=== PATIENT | male | born 1945 | race Caucasian/White ===

== ENCOUNTER → 2016-10-02 | Outpatient (CLI) | payer OTHER ==
[~2016-10-02] MED LIST: /LAMO20TA; /PROM25SU PO; ACET65TA; AMLODIPIN PO; AMLODIPINE/BENAZEPRI; ARIC10TA OR; ASPI81TA3; ASPI81TA3 OR; BENAZEPRIL PO; CARBAMIDE PEROXIDE AD; CLAR5CHW OR; DEPA500T2 OR; EFFE37.527; FLEXERIL; FLUO10TA2; GABA300T; GABA600T3 OR; IBUP600T; LOPI600T; LORATADINE; LOTREL; MECL25TA2 OR; NEUR600T; OMEP20TA7 OR; PHEN 25 PO; PRIL20CA; PROV90AE; PROZ10CA; PROZ20CA OR; RISP4TAB; SM I100T; VENL37.5 OR; VITA20002 OR
[2016-10-04 14:13] LABS: PSA TOTAL 1.4 ng/mL (0.0-4.0)
== END ==
LOC: M SMT 11:52
PROVIDERS: ATTEND Urology
DX: Z87.898 Personal history of other specified conditions (principal); N40.1 Benign prostatic hyperplasia with lower urinary tract symptoms; R39.12 Poor urinary stream
CPT/HCPCS: 36415; 84154; G0463

== ENCOUNTER → 2016-10-25 | Outpatient (CLI) | payer MEDICAID, OTHER ==
--- NOTE | 2016-10-25 12:01 | REP ---
LEFT ELBOW SERIES: Four views. HISTORY: Lateral epicondylitis. FINDINGS: There is mild olecranon and coronoid process spurring of the proximal ulna. No epicondylar spurring is seen. No periarticular soft-tissue calcification is seen. No evidence of joint effusion noted. IMPRESSION: Mild proximal ulnar spurring. No acute bony abnormality. Signed by Luis Miguel Houston MD 10/25/2016 02:27 P
== END ==
LOC: M RAD 11:33
PROVIDERS: ATTEND Physician Assistant
DX: M25.70 Osteophyte, unspecified joint (principal)

== ENCOUNTER → 2016-11-17 | Outpatient (CLI) | payer OTHER, MEDICAID | LOC: M PT 09:56 | PROVIDERS: ATTEND Physician Assistant | DX: M54.5 Low back pain (principal) | CPT/HCPCS: 97162; G8978; G8979; G8980 ==

== ENCOUNTER 2016-11-20 13:24 | Emergency (ER) | payer MEDICAID, OTHER ==
[~2016-11-20] VITALS: Ht 182.9 cm; Wt 93.4 kg
[2016-11-20] MEDS ORDERED: [UNRECOGNIZED DRUG - REMARK] (14:08)
[2016-11-20 15:59] VITALS: BP 115/71
== END 2016-11-20 16:10 | disposition home or self-care (01) ==
LOC: M ED 15:38
DX: J02.9 Acute pharyngitis, unspecified (principal); I10 Essential (primary) hypertension; R56.9 Unspecified convulsions; E78.00 Pure hypercholesterolemia, unspecified; R01.1 Cardiac murmur, unspecified; M54.9 Dorsalgia, unspecified; M19.90 Unspecified osteoarthritis, unspecified site; F41.9 Anxiety disorder, unspecified; F32.9 Major depressive disorder, single episode, unspecified; Z79.899 Other long term (current) drug therapy; Z79.82 Long term (current) use of aspirin; Z88.5 Allergy status to narcotic agent; F17.210 Nicotine dependence, cigarettes, uncomplicated

== ENCOUNTER → 2016-12-25 | Outpatient (CLI) | payer OTHER, MEDICAID ==
[~2016-12-25] MED LIST changes: +[UNRECOGNIZED DRUG - REMARK]
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
== END ==
LOC: M PAIN 11:20
PROVIDERS: ATTEND Nurse Practitioner Family
DX: Z09 Encounter for follow-up examination after completed treatment for conditions other than malignant neoplasm (principal); G89.29 Other chronic pain; M53.3 Sacrococcygeal disorders, not elsewhere classified; M25.552 Pain in left hip; M25.551 Pain in right hip; G40.909 Epilepsy, unspecified, not intractable, without status epilepticus; F03.90 Unspecified dementia, unspecified severity, without behavioral disturbance, psychotic disturbance, mood disturbance, and anxiety; I10 Essential (primary) hypertension; M51.36 Other intervertebral disc degeneration, lumbar region; M16.11 Unilateral primary osteoarthritis, right hip; K21.9 Gastro-esophageal reflux disease without esophagitis; F32.9 Major depressive disorder, single episode, unspecified; H91.90 Unspecified hearing loss, unspecified ear; H81.49 Vertigo of central origin, unspecified ear; R19.7 Diarrhea, unspecified; J43.9 Emphysema, unspecified; Z88.8 Allergy status to other drugs, medicaments and biological substances; F17.290 Nicotine dependence, other tobacco product, uncomplicated; Z79.82 Long term (current) use of aspirin; Z79.899 Other long term (current) drug therapy

== ENCOUNTER 2016-12-31 13:31 | Emergency (ER) | payer MEDICAID, OTHER ==
[~2016-12-31] VITALS: Ht 182.9 cm; Wt 93.0 kg
[2016-12-31] MEDS ORDERED: DOXYCYCLINE HYCLATE 100 MG TAB PO ONE (14:45)
[2016-12-31 15:09] VITALS: BP 126/78
[2017-01-03 00:07] LABS: Lyme Disease IgG/IgM Antibodie <0.91 ISR (0.00-0.90); Lyme Disease IgM Ab Quantitati <0.80 index (0.00-0.79)
== END 2016-12-31 15:14 | disposition home or self-care (01) ==
LOC: M ED 15:04
DX: S31.159A Open bite of abdominal wall, unspecified quadrant without penetration into peritoneal cavity, initial encounter (principal); W57.XXXA Bitten or stung by nonvenomous insect and other nonvenomous arthropods, initial encounter; Y92.9 Unspecified place or not applicable; Y93.9 Activity, unspecified; Y99.9 Unspecified external cause status; I10 Essential (primary) hypertension; F17.200 Nicotine dependence, unspecified, uncomplicated; Z79.82 Long term (current) use of aspirin; Z79.899 Other long term (current) drug therapy; Z88.5 Allergy status to narcotic agent

== ENCOUNTER → 2017-03-09 | Outpatient (CLI) | payer MEDICAID, MEDICARE, OTHER ==
[2017-03-09 16:20] LABS: ALBUMIN 3.7 GM/DL (3.2-5.2); ALBUMIN/GLOBULIN RATIO 1.16 (1.00-1.93); BILIRUBIN,TOTAL 0.4 MG/DL (0.2-1.0); CALCIUM LEVEL 9.1 MG/DL (8.8-10.2); CREATININE FOR GFR 1.42 MG/DL (0.70-1.30); GLOMERULAR FILTRATION RATE 51.9 (>42); POTASSIUM SERUM 4.4 MEQ/L (3.5-5.1); TOTAL PROTEIN 6.9 GM/DL (6.4-8.2)
--- NOTE | 2017-03-10 02:38 | REP ---
Clinical: Pain . Technique: Internal rotation, external rotation, and Y view. Findings: No acute fracture or dislocation. The acromioclavicular and glenohumeral joints are intact. No periarticular calcifications or degenerative changes are appreciated. Sub acromial space is normal. Surrounding soft tissues are unremarkable. Impression: Normal right shoulder radiographs. Signed by Gallo Rachel MD 03/10/2017 02:29 A
== END ==
LOC: M LAB 15:31
PROVIDERS: ATTEND Physician Assistant
DX: E78.4 Other hyperlipidemia (principal); M25.511 Pain in right shoulder; E03.9 Hypothyroidism, unspecified

== ENCOUNTER → 2017-03-20 | Outpatient (RCR) | payer OTHER | END | disposition home or self-care (01) | LOC: M PT 03-17 13:00 | PROVIDERS: ATTEND Physician Assistant | DX: Z51.89 Encounter for other specified aftercare (principal); M25.511 Pain in right shoulder | CPT/HCPCS: 97161; G8984; G8985 ==

== ENCOUNTER 2017-04-01 14:30 | Outpatient (RCR) | payer OTHER | END 2017-04-20 | disposition home or self-care (01) | LOC: M PT 14:30 | PROVIDERS: ATTEND Physician Assistant | DX: Z51.89 Encounter for other specified aftercare (principal); M25.511 Pain in right shoulder ==

== ENCOUNTER → 2017-08-21 | Outpatient (REF) | payer OTHER, MEDICAID ==
[2017-08-21 13:46] LABS: BASO # 0.1 10^3/uL (0.0-0.2); BASO % 1.1 % (0.0-1.0); EOS # 0.7 10^3/uL (0.0-0.50); EOS % 7.1 % (0.0-3.0); IMMATURE GRANULOCYTE % 0.4 % (0-0); LYMPH # 3.5 10^3/uL (1.5-4.5); LYMPH % 35.4 % (24.0-44.0); MEAN CORPUSCULAR VOLUME 94.1 fl (80.0-96.0); MONO # 1.3 10^3/uL (0.0-0.8); MONO % 13.3 % (0.0-5.0); NEUTROPHILS # 4.2 10^3/uL (1.8-7.7); NEUTROPHILS % 42.7 % (36.0-66.0); PLATELET COUNT, AUTOMATED 171 10^3/uL (150-450); RED CELL DISTRIBUTION WIDTH 12.3 % (11.5-14.5); WHITE BLOOD COUNT 9.9 10^3/uL (4.0-10.0)
[2017-08-21 14:54] LABS: ALBUMIN 3.7 GM/DL (3.2-5.2); ALBUMIN/GLOBULIN RATIO 1.06 (1.00-1.93); BILIRUBIN,TOTAL 0.5 MG/DL (0.2-1.0); CALCIUM LEVEL 9.1 MG/DL (8.8-10.2); CREATININE FOR GFR 1.61 MG/DL (0.70-1.30); FREE T4 0.6 NG/DL (0.76-1.46); GLOMERULAR FILTRATION RATE 44.9 (>42); POTASSIUM SERUM 4.2 MEQ/L (3.5-5.1); TOTAL PROTEIN 7.2 GM/DL (6.4-8.2)
== END ==
LOC: M SFHCPLAZ 11:25
PROVIDERS: ATTEND Physician Assistant Medical
DX: E03.9 Hypothyroidism, unspecified (principal); Z12.5 Encounter for screening for malignant neoplasm of prostate; E55.9 Vitamin D deficiency, unspecified; I10 Essential (primary) hypertension; R56.9 Unspecified convulsions
CPT/HCPCS: 80053; 80164; 82306; 84439; 84443; 85025; G0103; G0463

== ENCOUNTER → 2017-09-18 | Outpatient (REF) | payer OTHER | LOC: M SFHCPLAZ 15:19 | DX: R56.9 Unspecified convulsions (principal); E55.9 Vitamin D deficiency, unspecified | CPT/HCPCS: 80164 ==

== ENCOUNTER → 2017-09-22 | Outpatient (CLI) | payer MEDICARE | LOC: M SMT 11:43 | DX: J06.9 Acute upper respiratory infection, unspecified (principal) | CPT/HCPCS: 85025 ==

== ENCOUNTER → 2017-09-22 | Outpatient (REF) | payer MEDICARE ==
[2017-09-22 15:11] LABS: BASO # 0.2 10^3/uL (0.0-0.2); BASO % 1.2 % (0.0-1.0); EOS # 0.8 10^3/uL (0.0-0.50); EOS % 6.7 % (0.0-3.0); HEMATOCRIT 38.2 % (42.0-52.0); HEMOGLOBIN 12.6 g/dl (14.0-18.0); IMMATURE GRANULOCYTE # 0.2 10^3/uL (0-0); IMMATURE GRANULOCYTE % 1.5 % (0-0); LYMPH # 3.2 10^3/uL (1.5-4.5); LYMPH % 26.2 % (24.0-44.0); MEAN CORPUSCULAR HEMOGLOBIN 31.9 pg (27.0-33.0); MEAN CORPUSCULAR VOLUME 96.7 fl (80.0-96.0); MONO # 1.7 10^3/uL (0.0-0.8); MONO % 14.2 % (0.0-5.0); NEUTROPHILS # 6.1 10^3/uL (1.8-7.7); NEUTROPHILS % 50.2 % (36.0-66.0); PLATELET COUNT, AUTOMATED 194 10^3/uL (150-450); RED BLOOD COUNT 3.95 10^6/uL (4.30-6.10); RED CELL DISTRIBUTION WIDTH 12.8 % (11.5-14.5); WHITE BLOOD COUNT 12.2 10^3/uL (4.0-10.0)
== END ==
LOC: M SFHCPLAZ 11:23
DX: J06.9 Acute upper respiratory infection, unspecified (principal)
CPT/HCPCS: 85025

== ENCOUNTER → 2017-10-09 | Outpatient (CLI) | payer MEDICARE | LOC: M RAD 12:37 | DX: R51 Headache (principal); I73.9 Peripheral vascular disease, unspecified | CPT/HCPCS: 70450 ==

== ENCOUNTER → 2017-11-18 | Outpatient (REF) | payer MEDICARE, MEDICAID ==
[2017-11-18 20:54] LABS: VALPROIC ACID (DEPAKOTE) 48.2 UG/ML (50.0-100.0)
== END ==
LOC: M LABNEURO 14:39
DX: R56.9 Unspecified convulsions (principal)
CPT/HCPCS: 80164

== ENCOUNTER → 2017-11-20 | Outpatient (REF) | payer MEDICARE, MEDICAID ==
[2017-11-20 12:50] LABS: CHOLESTEROL LEVEL 102 MG/DL (<200); CHOLESTEROL RISK RATIO 2.318 (<5); CPK CREATINE PHOSPHOKINASE 152 U/L (39-308); FREE T4 0.65 NG/DL (0.76-1.46); HDL CHOLESTEROL 44 MG/DL (>40); LDL CHOLESTEROL 37.2 MG/DL (<100); NON-HDL-C 58 MG/DL; TRIGLYCERIDES LEVEL 104 MG/DL (<150)
== END ==
LOC: M SFHCPLAZ 09:54
DX: E78.4 Other hyperlipidemia (principal); E03.9 Hypothyroidism, unspecified
CPT/HCPCS: 82550

== ENCOUNTER 2017-12-02 19:22 | Emergency (ER) | payer MEDICARE, MEDICAID | END 2017-12-02 22:25 | disposition left against medical advice (07) | LOC: M ED 19:22 | DX: Z53.29 Procedure and treatment not carried out because of patient's decision for other reasons (principal) ==

== ENCOUNTER → 2017-12-18 | Outpatient (CLI) | payer MEDICARE, MEDICAID | LOC: M RAD 11:18 | DX: T15.00XA Foreign body in cornea, unspecified eye, initial encounter (principal); X58.XXXA Exposure to other specified factors, initial encounter; Y92.89 Other specified places as the place of occurrence of the external cause | CPT/HCPCS: 70250 ==

== ENCOUNTER → 2018-03-18 | Outpatient (CLI) | payer MEDICARE, MEDICAID ==
[2018-03-18 15:49] LABS: VALPROIC ACID (DEPAKOTE) 89.2 UG/ML (50.0-100.0)
== END ==
LOC: M LAB 14:34
DX: R56.9 Unspecified convulsions (principal)
CPT/HCPCS: 80164

== ENCOUNTER → 2018-04-01 | Outpatient (CLI) | payer MEDICARE, MEDICAID | LOC: M RAD 12:29 | DX: M51.36 Other intervertebral disc degeneration, lumbar region (principal); M25.78 Osteophyte, vertebrae; S30.0XXA Contusion of lower back and pelvis, initial encounter; S20.211A Contusion of right front wall of thorax, initial encounter; M25.522 Pain in left elbow; W19.XXXA Unspecified fall, initial encounter; W22.09XA Striking against other stationary object, initial encounter; Y92.9 Unspecified place or not applicable; Z23 Encounter for immunization | CPT/HCPCS: 72110 ==

== ENCOUNTER → 2018-04-19 | Outpatient (REF) | payer OTHER ==
[2018-04-19 18:45] LABS: ALBUMIN 3.7 GM/DL (3.2-5.2); ALBUMIN/GLOBULIN RATIO 1.03 (1.00-1.93); ALKALINE PHOSPHATASE 58 U/L (45-117); ALT/SGPT 36 U/L (12-78); ANION GAP 7 MEQ/L (8-16); AST/SGOT 32 U/L (7-37); BILIRUBIN,TOTAL 0.3 MG/DL (0.2-1.0); BLOOD UREA NITROGEN 21 MG/DL (7-18); CALCIUM LEVEL 8.7 MG/DL (8.8-10.2); CARBON DIOXIDE LEVEL 29 MEQ/L (21-32); CHLORIDE LEVEL 105 MEQ/L (98-107); CREATININE FOR GFR 1.56 MG/DL (0.70-1.30); GLOMERULAR FILTRATION RATE 46.4 (>42); GLUCOSE, FASTING 85 MG/DL (70-100); MAGNESIUM LEVEL 1.9 MG/DL (1.8-2.4); POTASSIUM SERUM 4.1 MEQ/L (3.5-5.1); SODIUM LEVEL 141 MEQ/L (136-145); TOTAL PROTEIN 7.3 GM/DL (6.4-8.2)
== END ==
LOC: M SFHCPLAZ 15:30
DX: K52.9 Noninfective gastroenteritis and colitis, unspecified (principal)

== ENCOUNTER → 2018-05-10 | Outpatient (REF) | payer OTHER, MEDICARE | LOC: M LAB REF 12:19 | DX: R19.7 Diarrhea, unspecified (principal) ==

== ENCOUNTER 2018-05-25 08:10 | Day surgery (SDC) | payer MEDICARE, MEDICAID ==
[2018-05-25] MEDS: NS 1,000 ML IV ×2 (08:23)
== END 2018-05-25 10:50 | disposition home or self-care (01) ==
LOC: M OPP 10:50
DX: D12.3 Benign neoplasm of transverse colon (principal); R19.7 Diarrhea, unspecified; R56.9 Unspecified convulsions; F03.90 Unspecified dementia, unspecified severity, without behavioral disturbance, psychotic disturbance, mood disturbance, and anxiety; K21.9 Gastro-esophageal reflux disease without esophagitis; I10 Essential (primary) hypertension; E78.00 Pure hypercholesterolemia, unspecified; E03.9 Hypothyroidism, unspecified; R06.02 Shortness of breath; F17.210 Nicotine dependence, cigarettes, uncomplicated; Z79.82 Long term (current) use of aspirin; Z79.84 Long term (current) use of oral hypoglycemic drugs; Z79.899 Other long term (current) drug therapy; Z88.8 Allergy status to other drugs, medicaments and biological substances; Z87.442 Personal history of urinary calculi
CPT/HCPCS: 45385

== ENCOUNTER → 2018-06-03 | Outpatient (REF) | payer OTHER, MEDICAID ==
[2018-06-03 18:49] LABS: BASO # 0.1 10^3/uL (0.0-0.2); BASO % 1.1 % (0.0-1.0); EOS # 0.6 10^3/uL (0.0-0.50); EOS % 7.5 % (0.0-3.0); HEMATOCRIT 37.7 % (42.0-52.0); HEMOGLOBIN 13.1 g/dl (13.5-17.5); IMMATURE GRANULOCYTE % 0.6 % (0-3.0); LYMPH # 2.8 10^3/uL (1.5-4.5); LYMPH % 34.2 % (24.0-44.0); MEAN CORPUSCULAR HEMOGLOBIN 32.3 pg (27.0-33.0); MEAN CORPUSCULAR HGB CONC 34.7 g/dl (32.0-36.5); MEAN CORPUSCULAR VOLUME 93.1 fl (80.0-96.0); NEUTROPHILS # 3.6 10^3/uL (1.8-7.7); NEUTROPHILS % 44.6 % (36.0-66.0); PLATELET COUNT, AUTOMATED 169 10^3/uL (150-450); RED BLOOD COUNT 4.05 10^6/uL (4.30-6.10); RED CELL DISTRIBUTION WIDTH 12.8 % (11.5-14.5); RETIC HEMOGLOBIN EQUIVALENT 35.7 pg (24-36); RETICULOCYTE # 79.8 10^9/L (17-77); WHITE BLOOD COUNT 8.2 10^3/uL (4.0-10.0)
[2018-06-03 19:00] LABS: INR 0.92; PARTIAL THROMBOPLASTIN TIME 25.4 SECONDS (25.4-37.6); PROTHROMBIN TIME 12.4 SECONDS (12.1-14.4)
[2018-06-03 19:31] LABS: ALBUMIN 3.4 GM/DL (3.2-5.2); ALBUMIN/GLOBULIN RATIO 0.92 (1.00-1.93); ALKALINE PHOSPHATASE 56 U/L (45-117); ALT/SGPT 27 U/L (12-78); ANION GAP 7 MEQ/L (8-16); AST/SGOT 19 U/L (7-37); BILIRUBIN,TOTAL 0.3 MG/DL (0.2-1.0); BLOOD UREA NITROGEN 13 MG/DL (7-18); CALCIUM LEVEL 8.7 MG/DL (8.8-10.2); CARBON DIOXIDE LEVEL 29 MEQ/L (21-32); CHLORIDE LEVEL 107 MEQ/L (98-107); CREATININE FOR GFR 1.22 MG/DL (0.70-1.30); GLOMERULAR FILTRATION RATE > 60.0 (>42); GLUCOSE, FASTING 84 MG/DL (70-100); SODIUM LEVEL 143 MEQ/L (136-145); TOTAL PROTEIN 7.1 GM/DL (6.4-8.2)
[2018-06-03 19:51] LABS: PTH INTACT 37.4 PG/ML (18.5-88.0); TOTAL 25(OH) VITAMIN D 43.3 NG/ML (30.0-100.0)
== END ==
LOC: M SFHCPLAZ 16:10
DX: I10 Essential (primary) hypertension (principal)

== ENCOUNTER 2018-06-14 05:45 | Day surgery (SDC) | payer MEDICARE, MEDICAID ==
[2018-06-14] MEDS ORDERED: LR 1,000 ML IV ×3 (07:15→09:00)
[2018-06-14] MEDS ORDERED: METOCLOPRAMIDE INJ 10MG/2ML VIAL (J2765) As Ordered (07:20)
[2018-06-14] MEDS ORDERED: PROPOFOL 200 MG/20 ML VIAL As Ordered (07:20)
[2018-06-14] MEDS ORDERED: ONDANSETRON 4MG/2ML VIAL (J2405) As Ordered (07:20)
[2018-06-14] MEDS ORDERED: LIDOCAINE 2% INJ 100 MG/5 ML SDV (FOR ANES.) As Ordered (07:20)
[2018-06-14] MEDS ORDERED: fentaNYL 100 MCG/2 ML INJECTION (J3010) As Ordered (07:21)
[2018-06-14] MEDS: BUPIVACAINE HCL 0.5% 30 ML VIAL As Ordered (08:24)
[2018-06-14] MEDS ORDERED: ONDANSETRON 4MG/2ML VIAL (J2405) IV (09:00)
[2018-06-14] MEDS ORDERED: fentaNYL 100 MCG/2 ML INJECTION (J3010) IV (09:00)
[2018-06-14] MEDS ORDERED: PERCOCET 5MG/325MG TAB PO (09:15)
== END 2018-06-14 10:40 | disposition home or self-care (01) ==
LOC: M SDC 05:45
DX: M23.221 Derangement of posterior horn of medial meniscus due to old tear or injury, right knee (principal); M23.261 Derangement of other lateral meniscus due to old tear or injury, right knee; M17.11 Unilateral primary osteoarthritis, right knee; M94.261 Chondromalacia, right knee; M23.41 Loose body in knee, right knee; E03.9 Hypothyroidism, unspecified; I12.9 Hypertensive chronic kidney disease with stage 1 through stage 4 chronic kidney disease, or unspecified chronic kidney disease; N20.0 Calculus of kidney; G40.909 Epilepsy, unspecified, not intractable, without status epilepticus; G30.0 Alzheimer's disease with early onset; E78.2 Mixed hyperlipidemia; R19.7 Diarrhea, unspecified; K21.9 Gastro-esophageal reflux disease without esophagitis; R06.02 Shortness of breath; F41.9 Anxiety disorder, unspecified; G62.9 Polyneuropathy, unspecified; R06.83 Snoring; N18.3 Chronic kidney disease, stage 3 (moderate); N40.0 Benign prostatic hyperplasia without lower urinary tract symptoms; J44.9 Chronic obstructive pulmonary disease, unspecified; Z88.5 Allergy status to narcotic agent; Z79.899 Other long term (current) drug therapy; Z79.82 Long term (current) use of aspirin; Z87.891 Personal history of nicotine dependence; Z87.442 Personal history of urinary calculi; Z86.010 Personal history of colon polyps
CPT/HCPCS: 29880

== ENCOUNTER 2018-06-27 14:58 | Emergency (ER) | payer MEDICARE, MEDICAID ==
[2018-06-27 16:26] LABS: BASO # 0.1 10^3/uL (0.0-0.2); BASO % 1.1 % (0.0-1.0); EOS # 0.5 10^3/uL (0.0-0.50); EOS % 4.1 % (0.0-3.0); IMMATURE GRANULOCYTE % 0.7 % (0-3.0); LYMPH # 3.4 10^3/uL (1.5-4.5); LYMPH % 30.9 % (24.0-44.0); MEAN CORPUSCULAR HEMOGLOBIN 31.5 pg (27.0-33.0); MEAN CORPUSCULAR HGB CONC 33.3 g/dl (32.0-36.5); MEAN CORPUSCULAR VOLUME 94.6 fl (80.0-96.0); MONO # 1.7 10^3/uL (0.0-0.8); MONO % 15.2 % (0.0-5.0); NEUTROPHILS # 5.2 10^3/uL (1.8-7.7); PLATELET COUNT, AUTOMATED 246 10^3/uL (150-450); RED BLOOD COUNT 4.44 10^6/uL (4.30-6.10); RED CELL DISTRIBUTION WIDTH 12.2 % (11.5-14.5); WHITE BLOOD COUNT 10.9 10^3/uL (4.0-10.0)
[2018-06-27 16:37] LABS: INR 1.03; PROTHROMBIN TIME 13.6 SECONDS (12.1-14.4)
[2018-06-27 16:46] LABS: ERYTHROCYTE SEDIMENTATION RATE 11 mm/hr (0-20)
[2018-06-27 16:49] LABS: ALBUMIN 3.7 GM/DL (3.2-5.2); ALKALINE PHOSPHATASE 70 U/L (45-117); ALT/SGPT 29 U/L (12-78); ANION GAP 8 MEQ/L (8-16); AST/SGOT 25 U/L (7-37); BILIRUBIN,DIRECT 0.1 MG/DL (0.0-0.2); BILIRUBIN,TOTAL 0.3 MG/DL (0.2-1.0); BLOOD UREA NITROGEN 19 MG/DL (7-18); C REACTIVE PROTEIN QUANTITATIV 0.39 MG/DL (0.00-0.30); CALCIUM LEVEL 8.5 MG/DL (8.8-10.2); CARBON DIOXIDE LEVEL 26 MEQ/L (21-32); CHLORIDE LEVEL 106 MEQ/L (98-107); CREATININE FOR GFR 1.53 MG/DL (0.70-1.30); GLOMERULAR FILTRATION RATE 47.5 (>42); GLUCOSE, FASTING 91 MG/DL (70-100); SODIUM LEVEL 140 MEQ/L (136-145); TOTAL PROTEIN 7.8 GM/DL (6.4-8.2)
[2018-06-27 16:49] LABS: LACTIC ACID SEPSIS PROTOCOL 1.6 MMOL/L (0.4-2.0)
[2018-06-27] MEDS: NS 1,000 ML IV (17:14)
[2018-06-27 18:36] LABS: APPEARANCE, BODY FLUID TURBID (CLEAR); SOURCE, BODY FLUID RT KNEE; SYNOVIAL FLUID COLOR RED (YELLOW)
[2018-06-27 18:37] LABS: BF DIFF IF INDICATED? YES (NO); BF MONONUCLEAR CELL % 88.9 % (0-0); BF POLYMORPHONUCLEAR CELL % 11.1 % (0-0); CRYSTALS, BODY FLUID NONE SEEN (NONE SEEN); RBC BODY FLUID 500 10^3/uL (<2); SOURCE, BODY FLUID CRYSTALS RT KNEE; WBC BODY FLUID 3030 /uL (0-10)
== END 2018-06-27 19:03 | disposition home or self-care (01) ==
LOC: M ED 14:58
DX: M25.061 Hemarthrosis, right knee (principal); M25.461 Effusion, right knee; Z98.890 Other specified postprocedural states; M79.89 Other specified soft tissue disorders; I10 Essential (primary) hypertension; E78.5 Hyperlipidemia, unspecified; M54.9 Dorsalgia, unspecified; F03.90 Unspecified dementia, unspecified severity, without behavioral disturbance, psychotic disturbance, mood disturbance, and anxiety; F41.9 Anxiety disorder, unspecified; F32.9 Major depressive disorder, single episode, unspecified; K21.9 Gastro-esophageal reflux disease without esophagitis; R56.9 Unspecified convulsions; Z87.442 Personal history of urinary calculi; E03.9 Hypothyroidism, unspecified; Z87.891 Personal history of nicotine dependence; Z88.5 Allergy status to narcotic agent; Z79.899 Other long term (current) drug therapy; Z79.82 Long term (current) use of aspirin
CPT/HCPCS: 73552

== ENCOUNTER → 2018-08-24 | Outpatient (REF) | payer MEDICARE, MEDICAID ==
[2018-08-24 16:16] LABS: BASO # 0.1 10^3/uL (0.0-0.2); BASO % 1.1 % (0.0-1.0); EOS # 0.5 10^3/uL (0.0-0.50); EOS % 5.7 % (0.0-3.0); HEMATOCRIT 38.2 % (42.0-52.0); HEMOGLOBIN 12.9 g/dl (13.5-17.5); IMMATURE GRANULOCYTE % 0.5 % (0-3.0); LYMPH # 3.3 10^3/uL (1.5-4.5); LYMPH % 38.9 % (24.0-44.0); MEAN CORPUSCULAR HEMOGLOBIN 31.5 pg (27.0-33.0); MEAN CORPUSCULAR HGB CONC 33.8 g/dl (32.0-36.5); MEAN CORPUSCULAR VOLUME 93.4 fl (80.0-96.0); MONO # 1.1 10^3/uL (0.0-0.8); MONO % 12.5 % (0.0-5.0); NEUTROPHILS # 3.5 10^3/uL (1.8-7.7); NEUTROPHILS % 41.3 % (36.0-66.0); PLATELET COUNT, AUTOMATED 202 10^3/uL (150-450); RED BLOOD COUNT 4.09 10^6/uL (4.30-6.10); RED CELL DISTRIBUTION WIDTH 12.3 % (11.5-14.5); WHITE BLOOD COUNT 8.5 10^3/uL (4.0-10.0)
[2018-08-24 16:30] LABS: ALBUMIN 3.4 GM/DL (3.2-5.2); ALKALINE PHOSPHATASE 53 U/L (45-117); ALT/SGPT 25 U/L (12-78); ANION GAP 6 MEQ/L (8-16); AST/SGOT 18 U/L (7-37); BILIRUBIN,TOTAL 0.3 MG/DL (0.2-1.0); BLOOD UREA NITROGEN 15 MG/DL (7-18); CALCIUM LEVEL 8.8 MG/DL (8.8-10.2); CARBON DIOXIDE LEVEL 29 MEQ/L (21-32); CHLORIDE LEVEL 104 MEQ/L (98-107); CREATININE FOR GFR 1.52 MG/DL (0.70-1.30); FREE T4 0.77 NG/DL (0.76-1.46); GLOMERULAR FILTRATION RATE 47.8 (>42); GLUCOSE, FASTING 94 MG/DL (70-100); POTASSIUM SERUM 4.3 MEQ/L (3.5-5.1); SODIUM LEVEL 139 MEQ/L (136-145); TOTAL PROTEIN 6.5 GM/DL (6.4-8.2)
== END ==
LOC: M SFHCPLAZ 14:08
DX: I10 Essential (primary) hypertension (principal); E03.9 Hypothyroidism, unspecified
CPT/HCPCS: 84443

== ENCOUNTER → 2018-09-07 | Outpatient (REF) | payer MEDICARE, MEDICAID ==
[~2018-09-07] MED LIST changes: +AMLO5TAB4 PO; +ASPI1TAB PO; +ATOR40TA75 PO; +BENA20TA8; +CITA20TA4 PO; +DIVA1TAB48 PO; +DIVA500T94 PO; +DONETAB6 PO; +FAMO40TA3 PO; +FISH7.5C PO; +GABA600T PO; +LEVO25TA5 PO; +NAME28CA PO; +PREV1CAP PO; +PRIM50TA6 PO; +TYLE500T78 PO; +VENL37TA PO; +VITA100067 PO; +VITA500T3 PO
[2018-09-07 17:56] LABS: BASO # 0.1 10^3/uL (0.0-0.2); BASO % 1.2 % (0.0-1.0); EOS # 0.4 10^3/uL (0.0-0.50); EOS % 4.1 % (0.0-3.0); HEMATOCRIT 38.5 % (42.0-52.0); HEMOGLOBIN 12.5 g/dl (13.5-17.5); LYMPH # 2.6 10^3/uL (1.5-4.5); LYMPH % 25.9 % (24.0-44.0); MEAN CORPUSCULAR HEMOGLOBIN 30.9 pg (27.0-33.0); MEAN CORPUSCULAR HGB CONC 32.5 g/dl (32.0-36.5); MEAN CORPUSCULAR VOLUME 95.3 fl (80.0-96.0); MONO # 1.3 10^3/uL (0.0-0.8); MONO % 12.8 % (0.0-5.0); NEUTROPHILS # 5.4 10^3/uL (1.8-7.7); NEUTROPHILS % 54.1 % (36.0-66.0); PLATELET COUNT, AUTOMATED 261 10^3/uL (150-450); RED BLOOD COUNT 4.04 10^6/uL (4.30-6.10); WHITE BLOOD COUNT 10.1 10^3/uL (4.0-10.0)
[2018-09-07 17:58] LABS: C REACTIVE PROTEIN QUANTITATIV 0.64 MG/DL (0.00-0.30); RHEUMATOID FACTOR QUANT < 10.0 IU/ML (<15.0)
[2018-09-07 19:05] LABS: ERYTHROCYTE SEDIMENTATION RATE 19 mm/hr (0-20)
[2018-09-10 00:40] LABS: Lyme Disease IgG/IgM Antibodie <0.91 ISR (0.00-0.90); Lyme Disease IgM Ab Quantitati <0.80 index (0.00-0.79)
== END ==
LOC: M LABDRAW1 17:05
PROVIDERS: ATTEND Orthopaedic Surgery
DX: M17.11 Unilateral primary osteoarthritis, right knee (principal)

== ENCOUNTER → 2018-11-09 | Outpatient (CLI) | payer MEDICARE, MEDICAID ==
[~2018-11-09] MED LIST changes: -AMLO5TAB4 PO; +AMLO5TAB6 PO; -GABA600T PO; +GABA600T4 PO
--- NOTE | 2018-11-10 02:46 | REP ---
Clinical: Chronic heel pain. Technique: AP, lateral, bilateral oblique views of the left foot. Findings: No acute fracture dislocation. Generalized age-related changes are appreciated primarily involving the tarsometatarsal joints and interphalangeal joints with subchondral sclerosis and minimal joint space narrowing. No acute fracture dislocation. Calcaneus and associated joint spaces are intact and normal. No heel spur. No soft tissue calcifications. Impression: Generalized age-related changes. Electronically Signed by Gallo Rachel MD 11/10/2018 02:37 A
== END ==
LOC: M RAD 13:34
PROVIDERS: ATTEND Nurse Practitioner Family
DX: M19.072 Primary osteoarthritis, left ankle and foot (principal); M79.672 Pain in left foot
CPT/HCPCS: 73630; G0463

== ENCOUNTER → 2018-11-17 | Outpatient (REF) | payer MEDICARE, MEDICAID ==
[2018-11-17 16:11] LABS: FREE T4 0.79 NG/DL (0.76-1.46); THYROID STIMULATING HORMONE 1.16 uIU/ML (0.358-3.740)
== END ==
LOC: M SFHCPLAZ 12:53
PROVIDERS: ATTEND Physician Assistant Medical
DX: E03.9 Hypothyroidism, unspecified (principal)

== ENCOUNTER 2018-12-15 10:06 | Outpatient (RCR) | payer MEDICARE, MEDICAID | END 2018-12-19 | LOC: M PT 10:06 | PROVIDERS: ATTEND Orthopaedic Surgery | DX: Z47.89 Encounter for other orthopedic aftercare (principal); M25.561 Pain in right knee; G89.29 Other chronic pain; M17.11 Unilateral primary osteoarthritis, right knee ==

== ENCOUNTER → 2018-12-15 | Outpatient (REF) | payer MEDICARE, MEDICAID ==
[2018-12-15 16:31] LABS: ALBUMIN 3.6 GM/DL (3.2-5.2); BILIRUBIN,TOTAL 0.4 MG/DL (0.2-1.0); CALCIUM LEVEL 8.8 MG/DL (8.8-10.2); CREATININE FOR GFR 1.45 MG/DL (0.70-1.30); GLOMERULAR FILTRATION RATE 50.5 (>42); POTASSIUM SERUM 4.4 MEQ/L (3.5-5.1); TOTAL PROTEIN 6.9 GM/DL (6.4-8.2)
[2018-12-15 16:35] LABS: TOTAL 25(OH) VITAMIN D 38.9 NG/ML (30.0-100.0)
[2018-12-15 16:36] LABS: PTH INTACT 54.7 PG/ML (18.5-88.0)
== END ==
LOC: M SFHCPLAZ 14:15
PROVIDERS: ATTEND Physician Assistant Medical
DX: E55.9 Vitamin D deficiency, unspecified (principal); N18.3 Chronic kidney disease, stage 3 (moderate); Z12.5 Encounter for screening for malignant neoplasm of prostate
CPT/HCPCS: 36415; 80053; 82306; 83970; G0103

== ENCOUNTER 2019-01-11 13:53 | Outpatient (RCR) | payer MEDICARE, MEDICAID | END 2019-01-18 | LOC: M PT 13:53 | PROVIDERS: ATTEND Orthopaedic Surgery | DX: M17.11 Unilateral primary osteoarthritis, right knee (principal); M54.5 Low back pain ==

== ENCOUNTER → 2019-01-11 | Outpatient (CLI) | payer MEDICARE, MEDICAID ==
[~2019-01-11] MED LIST changes: -/LAMO20TA; -ASPI1TAB PO; +ASPI81TA26 PO; -CITA20TA4 PO; +CITA20TA6 PO; +LAMI1TAB9
== END ==
LOC: M LAB 14:51
PROVIDERS: ATTEND Physician Assistant Medical
DX: G40.89 Other seizures (principal)

== ENCOUNTER 2019-01-27 13:46 | Outpatient (RCR) | payer MEDICARE, MEDICAID | END 2019-02-18 | LOC: M PT 13:46 | PROVIDERS: ATTEND Orthopaedic Surgery | DX: M25.561 Pain in right knee (principal); G89.29 Other chronic pain; M17.11 Unilateral primary osteoarthritis, right knee; M25.461 Effusion, right knee ==

== ENCOUNTER 2019-02-15 11:24 | Emergency (ER) | payer MEDICARE, MEDICAID ==
[~2019-02-15] VITALS: Ht 180.3 cm; Wt 93.2 kg
[2019-02-15] MEDS ORDERED: DOXYCYCLINE HYCLATE 100 MG TAB PO ONE (12:45)
[2019-02-15 12:48] VITALS: BP 135/70
[2019-02-17 00:11] LABS: Lyme Disease IgG/IgM Antibodie <0.91 ISR (0.00-0.90); Lyme Disease IgM Ab Quantitati <0.80 index (0.00-0.79)
== END 2019-02-15 13:25 | disposition home or self-care (01) ==
LOC: M ED 11:24
DX: S20.369A Insect bite (nonvenomous) of unspecified front wall of thorax, initial encounter (principal); W57.XXXA Bitten or stung by nonvenomous insect and other nonvenomous arthropods, initial encounter; Y92.89 Other specified places as the place of occurrence of the external cause; I10 Essential (primary) hypertension; F03.90 Unspecified dementia, unspecified severity, without behavioral disturbance, psychotic disturbance, mood disturbance, and anxiety; K21.9 Gastro-esophageal reflux disease without esophagitis; G89.29 Other chronic pain; Z79.899 Other long term (current) drug therapy; Z79.890 Hormone replacement therapy; Z79.82 Long term (current) use of aspirin; Z88.8 Allergy status to other drugs, medicaments and biological substances; Z87.891 Personal history of nicotine dependence

== ENCOUNTER → 2019-03-16 | Outpatient (CLI) | payer MEDICARE, MEDICAID ==
[2019-03-16 16:25] LABS: INR 1.06; PROTHROMBIN TIME 13.5 SECONDS (11.8-14.0)
[2019-03-16 16:26] LABS: PARTIAL THROMBOPLASTIN TIME 23.5 SECONDS (25.0-38.4)
== END ==
LOC: M LAB 15:51
PROVIDERS: ATTEND Physical Medicine & Rehabilitation
DX: Z01.812 Encounter for preprocedural laboratory examination (principal)

== ENCOUNTER 2019-06-27 17:58 | Emergency (ER) | payer MEDICARE, MEDICAID ==
[~2019-06-27] VITALS: Ht 180.3 cm; Wt 92.2 kg
[~2019-06-27 17:58] MED LIST changes: +CYAN500T8 PO; -VITA500T3 PO
[2019-06-27] MEDS ORDERED: ACET-683 PO (18:51)
[2019-06-27] MEDS ORDERED: LEVO75TA4 (18:51)
[2019-06-27] MEDS ORDERED: ATOR40TA75 PO (18:51)
[2019-06-27] MEDS ORDERED: VENL50TA2 PO (18:51)
[2019-06-27] MEDS ORDERED: LISI-542 (18:52)
--- NOTE | 2019-06-27 19:02 | REP ---
Right tib-fib series: Four views. History: Right lower extremity injury. Findings: There is Achilles calcaneal spurring. Mild upper pole nonarticular patellar spurring is seen. There is medial and lateral compartment tibiofemoral spurring. No fracture or subluxation is seen. Impression: Heel spurring and osteoarthritic spurring at the knee. No fracture or other acute bony abnormality. Electronically Signed by Luis Miguel Houston MD 06/27/2019 06:54 P
--- NOTE | 2019-06-27 19:03 | REP ---
Right ankle: Four views. History: Right ankle injury. Findings: Four views right ankle are compared with the prior study from January 11, 2016. Findings: There is Achilles calcaneal spurring again noted. Tibiotalar articulation is normally aligned. No fracture or subluxation is seen. Impression: Achilles heel spur. No fracture seen. Electronically Signed by Luis Miguel Houston MD 06/27/2019 06:54 P
[2019-06-27] MEDS ORDERED: DOXYCYCLINE HYCLATE 100 MG TAB PO ONE (20:00)
[2019-06-27] MEDS ORDERED: ADACEL/BOOSTRIX VACCINE (DIPHTH/PERTUSS/ACELL/TETANUS)0.5ML SYR (90715) IM ONE (20:00)
[2019-06-27] MEDS ORDERED: DOXY100C37 PO (20:07)
[2019-06-27 20:13] VITALS: BP 170/81
== END 2019-06-27 20:17 | disposition home or self-care (01) ==
LOC: M ED 17:58
DX: S80.811A Abrasion, right lower leg, initial encounter (principal); L03.115 Cellulitis of right lower limb; X58.XXXA Exposure to other specified factors, initial encounter; Y92.099 Unspecified place in other non-institutional residence as the place of occurrence of the external cause; Y93.89 Activity, other specified; Y99.9 Unspecified external cause status; M77.31 Calcaneal spur, right foot; M25.761 Osteophyte, right knee; I10 Essential (primary) hypertension; E78.5 Hyperlipidemia, unspecified; F03.90 Unspecified dementia, unspecified severity, without behavioral disturbance, psychotic disturbance, mood disturbance, and anxiety; J43.9 Emphysema, unspecified; K21.9 Gastro-esophageal reflux disease without esophagitis; E03.9 Hypothyroidism, unspecified; M19.90 Unspecified osteoarthritis, unspecified site; M54.9 Dorsalgia, unspecified; Z87.19 Personal history of other diseases of the digestive system; F17.290 Nicotine dependence, other tobacco product, uncomplicated; Z79.82 Long term (current) use of aspirin; Z79.899 Other long term (current) drug therapy; Z88.8 Allergy status to other drugs, medicaments and biological substances

== ENCOUNTER 2019-07-05 11:47 | Emergency (ER) | payer MEDICARE, MEDICAID ==
[~2019-07-05] VITALS: Ht 180.3 cm; Wt 93.2 kg
[~2019-07-05 11:47] MED LIST changes: +ACET-683 PO; +DOXY100C37 PO; +LEVO75TA4; +LISI-542; +VENL50TA2 PO
[2019-07-05 13:16] LABS: HEMATOCRIT 38.8 % (42.0-52.0); MEAN CORPUSCULAR HEMOGLOBIN 31.8 pg (27.0-33.0); MEAN CORPUSCULAR HGB CONC 33.5 g/dl (32.0-36.5); MEAN CORPUSCULAR VOLUME 94.9 fl (80.0-96.0); PLATELET COUNT, AUTOMATED 186 10^3/uL (150-450); RED BLOOD COUNT 4.09 10^6/uL (4.30-6.10); WHITE BLOOD COUNT 8.3 10^3/uL (4.0-10.0)
[2019-07-05 13:39] LABS: BLOOD UREA NITROGEN 17 MG/DL (7-18); C REACTIVE PROTEIN QUANTITATIV < 0.30 MG/DL (0.00-0.30); CALCIUM LEVEL 9.3 MG/DL (8.8-10.2); CARBON DIOXIDE LEVEL 28 MEQ/L (21-32); CHLORIDE LEVEL 107 MEQ/L (98-107); CREATININE FOR GFR 1.34 MG/DL (0.70-1.30); GLOMERULAR FILTRATION RATE 55.2 (>42); GLUCOSE, FASTING 86 MG/DL (70-100); POTASSIUM SERUM 4.5 MEQ/L (3.5-5.1); SODIUM LEVEL 140 MEQ/L (136-145)
[2019-07-05] MEDS ORDERED: ACETAMINOPHEN 500 MG TAB PO ONE (14:15)
[2019-07-05 14:19] LABS: ERYTHROCYTE SEDIMENTATION RATE 8 mm/hr (0-20)
[2019-07-05 14:56] VITALS: BP 145/70
== END 2019-07-05 14:58 | disposition home or self-care (01) ==
LOC: M ED 11:47
DX: S80.811A Abrasion, right lower leg, initial encounter (principal); W26.8XXA Contact with other sharp object(s), not elsewhere classified, initial encounter; Y92.009 Unspecified place in unspecified non-institutional (private) residence as the place of occurrence of the external cause; Y93.89 Activity, other specified; Y99.9 Unspecified external cause status; I10 Essential (primary) hypertension; E78.5 Hyperlipidemia, unspecified; F03.90 Unspecified dementia, unspecified severity, without behavioral disturbance, psychotic disturbance, mood disturbance, and anxiety; R19.7 Diarrhea, unspecified; Z88.8 Allergy status to other drugs, medicaments and biological substances; Z79.82 Long term (current) use of aspirin; Z79.899 Other long term (current) drug therapy

== ENCOUNTER → 2019-07-06 | Outpatient (REF) | payer MEDICARE, MEDICAID ==
[2019-07-06 18:14] LABS: FREE T4 1.01 NG/DL (0.76-1.46); THYROID STIMULATING HORMONE 0.817 uIU/ML (0.358-3.740)
== END ==
LOC: M SFHCPLAZ 15:31
PROVIDERS: ATTEND Physician Assistant Medical
DX: E03.9 Hypothyroidism, unspecified (principal)
CPT/HCPCS: 36415; 84439; 84443; G0463

== ENCOUNTER → 2019-08-17 | Outpatient (CLI) | payer MEDICARE ==
[2019-08-17 13:44] LABS: BASO # 0.1 10^3/uL (0.0-0.2); BASO % 1.2 % (0.0-1.0); EOS # 0.6 10^3/uL (0.0-0.5); EOS % 7.5 % (0.0-3.0); HEMATOCRIT 39.6 % (42.0-52.0); HEMOGLOBIN 13.1 g/dl (13.5-17.5); MEAN CORPUSCULAR HEMOGLOBIN 32.4 pg (27.0-33.0); MEAN CORPUSCULAR HGB CONC 33.1 g/dl (32.0-36.5); MONO % 11.9 % (0.0-5.0); NEUTROPHILS # 3.5 10^3/uL (1.5-8.5); NEUTROPHILS % 42.7 % (36.0-66.0); PLATELET COUNT, AUTOMATED 185 10^3/uL (150-450); RED BLOOD COUNT 4.04 10^6/uL (4.30-6.10); WHITE BLOOD COUNT 8.3 10^3/uL (4.0-10.0)
[2019-08-17 14:15] LABS: ALBUMIN 3.4 GM/DL (3.2-5.2); BILIRUBIN,TOTAL 0.2 MG/DL (0.2-1.0); CALCIUM LEVEL 8.7 MG/DL (8.8-10.2); CREATININE FOR GFR 1.41 MG/DL (0.70-1.30); POTASSIUM SERUM 4.2 MEQ/L (3.5-5.1); TOTAL PROTEIN 6.7 GM/DL (6.4-8.2)
== END ==
LOC: M LAB 12:45
PROVIDERS: ATTEND Physician Assistant Medical
DX: N18.3 Chronic kidney disease, stage 3 (moderate) (principal); I12.9 Hypertensive chronic kidney disease with stage 1 through stage 4 chronic kidney disease, or unspecified chronic kidney disease

== ENCOUNTER → 2019-10-10 | Outpatient (CLI) | payer MEDICARE ==
[2019-10-10 14:51] LABS: CHOLESTEROL RISK RATIO 5.166 (<5); FREE T4 0.8 NG/DL (0.76-1.46); PTH INTACT 39.4 PG/ML (18.5-88.0); THYROID STIMULATING HORMONE 2.74 uIU/ML (0.358-3.740); TOTAL 25(OH) VITAMIN D 43.8 NG/ML (30.0-100.0)
== END ==
LOC: M LAB 13:04
PROVIDERS: ATTEND Physician Assistant Medical
DX: E03.9 Hypothyroidism, unspecified (principal); E78.2 Mixed hyperlipidemia; E55.9 Vitamin D deficiency, unspecified; Z12.5 Encounter for screening for malignant neoplasm of prostate
CPT/HCPCS: 36415; 80061; 82306; 83970; 84439; 84443; G0103

== ENCOUNTER → 2019-10-12 | Outpatient (CLI) | payer MEDICARE ==
[2019-10-12 11:41] LABS: FOLATE 8.2 NG/ML; VALPROIC ACID (DEPAKOTE) 44.2 UG/ML (50.0-100.0)
== END ==
LOC: M LAB 09:58
PROVIDERS: ATTEND Physician Assistant Medical
DX: R56.9 Unspecified convulsions (principal); G62.9 Polyneuropathy, unspecified; R25.1 Tremor, unspecified

== ENCOUNTER → 2019-11-07 | Outpatient (REF) | payer MEDICARE, MEDICAID ==
[2019-11-07 17:59] LABS: PLATELET COUNT, AUTOMATED 159 10^3/uL (150-450)
[2019-11-07 18:10] LABS: INR 1.06; PROTHROMBIN TIME 13.5 SECONDS (11.8-14.0)
[2019-11-07 18:11] LABS: PARTIAL THROMBOPLASTIN TIME 26.9 SECONDS (25.0-38.4)
== END ==
LOC: M LABDRAW1 16:44
PROVIDERS: ATTEND Physical Medicine & Rehabilitation
DX: Z01.812 Encounter for preprocedural laboratory examination (principal); M47.27 Other spondylosis with radiculopathy, lumbosacral region

== ENCOUNTER → 2019-11-25 | Outpatient (CLI) | payer MEDICARE, MEDICAID ==
[2019-11-25 10:14] LABS: COLLAGEN EPINEPHRINE 231 SECONDS (74-162)
[2019-11-25 10:39] LABS: COLLAGEN ADP 63 SECONDS (56-103)
== END ==
LOC: M LAB 08:49
PROVIDERS: ATTEND Orthopaedic Surgery
DX: Z01.812 Encounter for preprocedural laboratory examination (principal)

== ENCOUNTER → 2019-12-06 | Outpatient (REF) | payer MEDICARE, MEDICAID ==
[2019-12-06 15:32] LABS: BASO # 0.2 10^3/uL (0.0-0.2); BASO % 1.5 % (0.0-1.0); EOS # 1.4 10^3/uL (0.0-0.5); HEMATOCRIT 39.8 % (42.0-52.0); HEMOGLOBIN 13.2 g/dl (13.5-17.5); LYMPH # 3.7 10^3/uL (1.5-5.0); LYMPH % 38.6 % (24.0-44.0); MEAN CORPUSCULAR HEMOGLOBIN 31.1 pg (27.0-33.0); MEAN CORPUSCULAR HGB CONC 33.2 g/dl (32.0-36.5); MEAN CORPUSCULAR VOLUME 93.6 fl (80.0-96.0); MONO # 1.3 10^3/uL (0.0-0.8); NEUTROPHILS # 3.2 10^3/uL (1.5-8.5); NEUTROPHILS % 32.5 % (36.0-66.0); PLATELET COUNT, AUTOMATED 163 10^3/uL (150-450); RED BLOOD COUNT 4.25 10^6/uL (4.30-6.10); WHITE BLOOD COUNT 9.7 10^3/uL (4.0-10.0)
[2019-12-06 15:57] LABS: ERYTHROCYTE SEDIMENTATION RATE 8 mm/hr (0-20)
[2019-12-06 16:00] LABS: ALBUMIN 3.7 GM/DL (3.2-5.2); ALT/SGPT 23 U/L (12-78); BILIRUBIN,TOTAL 0.3 MG/DL (0.2-1.0); BLOOD UREA NITROGEN 20 MG/DL (7-18); CARBON DIOXIDE LEVEL 27 MEQ/L (21-32); CHLORIDE LEVEL 108 MEQ/L (98-107); GLOMERULAR FILTRATION RATE 52.5 (>42); GLUCOSE, FASTING 83 MG/DL (70-100); POTASSIUM SERUM 3.8 MEQ/L (3.5-5.1); RHEUMATOID FACTOR QUANT < 10.0 IU/ML (<15.0); SODIUM LEVEL 139 MEQ/L (136-145); TOTAL PROTEIN 7.1 GM/DL (6.4-8.2); VALPROIC ACID (DEPAKOTE) 63.9 UG/ML (50.0-100.0)
[2019-12-08 14:07] LABS: ANTINUCLEAR ANTIBODIES DIRECT Negative (Negative); LEAD BLOOD ADULT 2 ug/dL (0-4)
== END ==
LOC: M LABNEURO 15:08
PROVIDERS: ATTEND Physician Assistant Medical
DX: G40.909 Epilepsy, unspecified, not intractable, without status epilepticus (principal); F03.90 Unspecified dementia, unspecified severity, without behavioral disturbance, psychotic disturbance, mood disturbance, and anxiety; R51 Headache; R73.01 Impaired fasting glucose

== ENCOUNTER → 2019-12-28 | Outpatient (CLI) | payer MEDICARE, MEDICAID | LOC: M PT 12:31 | PROVIDERS: ATTEND Physician Assistant Medical | DX: M51.37 Other intervertebral disc degeneration, lumbosacral region (principal) ==

== ENCOUNTER → 2020-01-16 | Outpatient (REF) | payer MEDICARE, MEDICAID ==
[2020-01-16 15:27] LABS: ALBUMIN 3.5 GM/DL (3.2-5.2); BILIRUBIN,TOTAL 0.5 MG/DL (0.2-1.0); CALCIUM LEVEL 9.2 MG/DL (8.8-10.2); CREATININE FOR GFR 1.6 MG/DL (0.70-1.30); POTASSIUM SERUM 4.7 MEQ/L (3.5-5.1)
[2020-01-16 15:31] LABS: PTH INTACT 31.3 PG/ML (18.5-88.0); TOTAL 25(OH) VITAMIN D 37.6 NG/ML (30.0-100.0)
== END ==
LOC: M PLALAB 13:28
PROVIDERS: ATTEND Physician Assistant Medical
DX: N18.3 Chronic kidney disease, stage 3 (moderate) (principal); Z12.5 Encounter for screening for malignant neoplasm of prostate; E55.9 Vitamin D deficiency, unspecified
CPT/HCPCS: 36415; 80053; 82306; 83970; G0103

== ENCOUNTER 2020-02-10 13:41 | Emergency (ER) | payer MEDICARE, MEDICAID ==
[~2020-02-10] VITALS: Ht 180.3 cm; Wt 90.0 kg
[2020-02-10 14:14] LABS: BASO # 0.1 10^3/uL (0.0-0.2); BASO % 1.4 % (0.0-1.0); EOS # 0.5 10^3/uL (0.0-0.5); EOS % 6.7 % (0.0-3.0); HEMATOCRIT 35.7 % (42.0-52.0); HEMOGLOBIN 12.3 g/dl (13.5-17.5); LYMPH # 2.3 10^3/uL (1.5-5.0); LYMPH % 28.9 % (24.0-44.0); MEAN CORPUSCULAR HEMOGLOBIN 32.9 pg (27.0-33.0); MEAN CORPUSCULAR HGB CONC 34.5 g/dl (32.0-36.5); MEAN CORPUSCULAR VOLUME 95.5 fl (80.0-96.0); MONO # 0.9 10^3/uL (0.0-0.8); MONO % 10.5 % (0.0-5.0); NEUTROPHILS # 4.2 10^3/uL (1.5-8.5); NEUTROPHILS % 51.8 % (36.0-66.0); PLATELET COUNT, AUTOMATED 155 10^3/uL (150-450); RED BLOOD COUNT 3.74 10^6/uL (4.30-6.10); WHITE BLOOD COUNT 8.1 10^3/uL (4.0-10.0)
[2020-02-10] MEDS ORDERED: NS 500 ML IV ONE (14:15)
[2020-02-10 14:52] LABS: CK-MB VALUE MASS 1.3 NG/ML (<3.6); CPK CREATINE PHOSPHOKINASE 133 U/L (39-308); FREE T4 0.87 NG/DL (0.76-1.46); MB/CK RELATIVE INDEX 0.98 (< OR =4); TROPONIN I < 0.02 NG/ML (< 0.10); VALPROIC ACID (DEPAKOTE) 56.7 UG/ML (50.0-100.0)
--- NOTE | 2020-02-10 14:57 | REP ---
REASON FOR EXAM: Syncopal episode. COMPARISON: 10/09/2017 which showed chronic changes. The ventricles and sulci are unchanged. The deep cerebral white matter is unchanged. There is no shift in the midline structures. There are no acute extra-axial fluid collections. There is no evidence of acute intracranial hemorrhage or nonhemorrhagic event. There is no skull fracture. The imaged paranasal sinuses and mastoid air cells are again seen to be clear. IMPRESSION: Stable chronic changes with atrophy and deep white matter ischemic disease. Electronically Signed by Angel Kelley DO 02/10/2020 03:47 P
--- NOTE | 2020-02-10 15:12 | REP ---
CHEST, PORTABLE: AP portable view of the chest is performed and compared to a prior study of 09/22/2017. No acute infiltrate is seen. There appear to be tiny calcified granulomas in the left apex and left mid lung zone. The heart is upper limits of normal in size. There is calcification of the thoracic aorta. The mediastinal silhouette is unchanged. IMPRESSION: No acute infiltrate. Electronically Signed by Yuri Chu MD 02/10/2020 04:10 P
[2020-02-10 15:16] VITALS: BP 137/65
--- NOTE | 2020-02-10 15:46 | ECGEPIP ---
[facility] - ED Test Date: 2020-02-10 Pat Name: IVON RODRIGUEZ Department: Room: - Gender: Male [employer] Miner: anjali CUELLARB: 1945 Requested By: Kat Faye Order Number: [id number] Reading MD: Kat Faye Measurements Intervals [place] Rate: 61 P: 42 MD: 195 QRS: 20 QRSD: 117 T: 41 QT: 432 QTc: 436 Interpretive Statements SINUS RHYTHM INCOMPLETE RIGHT BUNDLE BRANCH BLOCK NONSPECIFIC ST T WAVE CHANGES CW 12/06/15 RATE DECRASED [facility] Electronically Signed on 02-10-2020 15:45:59 EDT by Kat Faye
== END 2020-02-10 15:52 | disposition home or self-care (01) ==
LOC: EDBD 13:41 → M ED 13:41
DX: R55 Syncope and collapse (principal); I45.19 Other right bundle-branch block; I10 Essential (primary) hypertension; E07.9 Disorder of thyroid, unspecified; R56.9 Unspecified convulsions; Z79.899 Other long term (current) drug therapy; Z79.82 Long term (current) use of aspirin; Z88.8 Allergy status to other drugs, medicaments and biological substances

== ENCOUNTER → 2020-02-16 | Outpatient (REF) | payer MEDICARE, MEDICAID ==
[~2020-02-16] MED LIST changes: +AMLO1TAB24 PO; -AMLO5TAB6 PO; +CYAN500T14 PO; -CYAN500T8 PO; -LISI-542; +LISI-898
[2020-02-16 20:32] LABS: ALBUMIN 3.5 GM/DL (3.2-5.2); BILIRUBIN,TOTAL 0.3 MG/DL (0.2-1.0); CALCIUM LEVEL 8.7 MG/DL (8.8-10.2); CREATININE FOR GFR 1.31 MG/DL (0.70-1.30); GLOMERULAR FILTRATION RATE 56.5 (>42); MAGNESIUM LEVEL 2.1 MG/DL (1.8-2.4); POTASSIUM SERUM 4.6 MEQ/L (3.5-5.1); TOTAL PROTEIN 6.8 GM/DL (6.4-8.2)
== END ==
LOC: M SFHCPLAZ 14:07
PROVIDERS: ATTEND Physician Assistant Medical
DX: T67.1XXD Heat syncope, subsequent encounter (principal); N18.3 Chronic kidney disease, stage 3 (moderate)
CPT/HCPCS: 36415; 80053; 83735; 83880; G0463

== ENCOUNTER → 2020-02-22 | Outpatient (CLI) | payer MEDICARE, MEDICAID ==
[~2020-02-22] MED LIST changes: -AMLO1TAB24 PO; +AMLO5TAB6 PO; -CYAN500T14 PO; +CYAN500T8 PO; +LISI-542; -LISI-898
[2020-02-22 11:36] LABS: COLLAGEN EPINEPHRINE 206 SECONDS (74-162)
[2020-02-22 12:00] LABS: COLLAGEN ADP 61 SECONDS (56-103)
[2020-02-22 12:14] LABS: INR 1.09; PROTHROMBIN TIME 13.8 SECONDS (11.8-14.0)
[2020-02-22 12:15] LABS: PARTIAL THROMBOPLASTIN TIME 27.2 SECONDS (25.0-38.4)
== END ==
LOC: M LAB 10:43
PROVIDERS: ATTEND Physical Medicine & Rehabilitation
DX: Z01.812 Encounter for preprocedural laboratory examination (principal); I10 Essential (primary) hypertension; E78.00 Pure hypercholesterolemia, unspecified; I25.10 Atherosclerotic heart disease of native coronary artery without angina pectoris; K21.9 Gastro-esophageal reflux disease without esophagitis

== ENCOUNTER → 2020-02-23 | Outpatient (CLI) | payer MEDICARE, MEDICAID ==
[2020-02-23 10:24] LABS: PLATELET COUNT, AUTOMATED 169 10^3/uL (150-450)
== END ==
LOC: M LAB 09:43
PROVIDERS: ATTEND Physical Medicine & Rehabilitation
DX: Z01.818 Encounter for other preprocedural examination (principal); M47.10 Other spondylosis with myelopathy, site unspecified

== ENCOUNTER → 2020-02-24 | Outpatient (CLI) | payer MEDICARE, MEDICAID | LOC: M LABSMTC 09:32 | PROVIDERS: ATTEND Physician Assistant | DX: Z03.818 Encounter for observation for suspected exposure to other biological agents ruled out (principal); Z11.59 Encounter for screening for other viral diseases ==

== ENCOUNTER → 2020-04-10 | Outpatient (CLI) | payer MEDICARE, MEDICAID ==
[~2020-04-10] MED LIST changes: +AMLO1TAB24 PO; -AMLO5TAB6 PO
[2020-04-10 09:41] LABS: C REACTIVE PROTEIN QUANTITATIV < 0.30 MG/DL (0.00-0.30); RHEUMATOID FACTOR QUANT < 10.0 IU/ML (<15.0)
[2020-05-07 08:07] LABS: ANTINUCLEAR ANTIBODIES DIRECT Negative (Negative); HLA-B27 Negative (.)
== END ==
LOC: M LAB 08:39
PROVIDERS: ATTEND Physician Assistant
DX: M48.061 Spinal stenosis, lumbar region without neurogenic claudication (principal)

== ENCOUNTER → 2020-06-14 | Outpatient (CLI) | payer MEDICARE, MEDICAID ==
[2020-06-14 17:45] LABS: BASO # 0.1 10^3/uL (0.0-0.2); BASO % 0.9 % (0.0-1.0); EOS # 0.5 10^3/uL (0.0-0.5); EOS % 4.6 % (0.0-3.0); HEMATOCRIT 39.2 % (42.0-52.0); HEMOGLOBIN 12.9 g/dl (13.5-17.5); LYMPH # 3.3 10^3/uL (1.5-5.0); LYMPH % 30.8 % (24.0-44.0); MEAN CORPUSCULAR HEMOGLOBIN 32.3 pg (27.0-33.0); MEAN CORPUSCULAR HGB CONC 32.9 g/dl (32.0-36.5); MEAN CORPUSCULAR VOLUME 98.2 fl (80.0-96.0); MONO # 1.4 10^3/uL (0.0-0.8); MONO % 13.3 % (0.0-5.0); NEUTROPHILS # 5.3 10^3/uL (1.5-8.5); NEUTROPHILS % 49.9 % (36.0-66.0); PLATELET COUNT, AUTOMATED 181 10^3/uL (150-450); RED BLOOD COUNT 3.99 10^6/uL (4.30-6.10); WHITE BLOOD COUNT 10.7 10^3/uL (4.0-10.0)
[2020-06-14 18:13] LABS: TOTAL 25(OH) VITAMIN D 33.6 NG/ML (30.0-100.0)
[2020-06-14 18:14] LABS: PTH INTACT 26.9 PG/ML (18.5-88.0)
== END ==
LOC: M PLALAB 14:37
PROVIDERS: ATTEND Physician Assistant Medical
DX: G30.1 Alzheimer's disease with late onset (principal); F41.8 Other specified anxiety disorders; Z79.899 Other long term (current) drug therapy

== ENCOUNTER 2020-12-12 02:26 | Emergency (ER) | payer MEDICARE, MEDICAID ==
[~2020-12-12] VITALS: Ht 180.3 cm; Wt 100.0 kg
[~2020-12-12 02:26] MED LIST changes: +CYAN500T14 PO; -CYAN500T8 PO; -LISI-542; +LISI-898
[2020-12-12 02:44] LABS: BASO # 0.1 10^3/uL (0.0-0.2); BASO % 1.4 % (0.0-1.0); EOS # 0.6 10^3/uL (0.0-0.5); EOS % 8.2 % (0.0-3.0); HEMATOCRIT 33.2 % (42.0-52.0); HEMOGLOBIN 11.1 g/dl (13.5-17.5); LYMPH # 3.2 10^3/uL (1.5-5.0); MEAN CORPUSCULAR HGB CONC 33.4 g/dl (32.0-36.5); MEAN CORPUSCULAR VOLUME 95.7 fl (80.0-96.0); MONO % 13.6 % (2.0-8.0); NEUTROPHILS # 2.3 10^3/uL (1.5-8.5); NEUTROPHILS % 32.4 % (36.0-66.0); PLATELET COUNT, AUTOMATED 170 10^3/uL (150-450); RED BLOOD COUNT 3.47 10^6/uL (4.30-6.10); WHITE BLOOD COUNT 7.2 10^3/uL (4.0-10.0)
[2020-12-12 03:19] LABS: ACETAMINOPHEN LEVEL < 2.0 UG/ML (10.0-30.0); ALBUMIN 3.1 GM/DL (3.2-5.2); ALT/SGPT 28 U/L (12-78); BILIRUBIN,DIRECT 0.1 MG/DL (0.0-0.2); BILIRUBIN,TOTAL 0.3 MG/DL (0.2-1.0); BLOOD UREA NITROGEN 19 MG/DL (7-18); CARBON DIOXIDE LEVEL 26 MEQ/L (21-32); CHLORIDE LEVEL 113 MEQ/L (98-107); CPK CREATINE PHOSPHOKINASE 214 U/L (39-308); CREATININE FOR GFR 1.39 MG/DL (0.70-1.30); ETHYL ALCOHOL (ETHANOL) < 0.003 % (0.000-0.010); GLOMERULAR FILTRATION RATE 52.7 (>42); GLUCOSE, FASTING 116 MG/DL (70-100); SALICYLATE LEVEL < 1.7 MG/DL (5.0-30.0); SODIUM LEVEL 143 MEQ/L (136-145)
--- NOTE | 2020-12-12 08:05 | ECGEPIP ---
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
[2020-12-12 08:44] LABS: AMPHETAMINES LEVEL URINE NEGATIVE (NEGATIVE); BARBITURATES URINE POSITIVE (NEGATIVE); BENZODIAZEPINES URINE NEGATIVE (NEGATIVE); CANNABINOIDS URINE NEGATIVE (NEGATIVE); COCAINE METABOLITE URINE NEGATIVE (NEGATIVE); METHADONE URINE NEGATIVE (NEGATIVE); OPIATES URINE NEGATIVE (NEGATIVE); PHENCYCLIDINE URINE NEGATIVE (NEGATIVE)
[2020-12-12 08:56] VITALS: BP 137/67
== END 2020-12-12 09:17 | disposition home or self-care (01) ==
LOC: M ED 02:26
DX: T43.591A Poisoning by other antipsychotics and neuroleptics, accidental (unintentional), initial encounter (principal); G30.9 Alzheimer's disease, unspecified; R00.1 Bradycardia, unspecified; I45.10 Unspecified right bundle-branch block; I10 Essential (primary) hypertension; J44.9 Chronic obstructive pulmonary disease, unspecified; F03.90 Unspecified dementia, unspecified severity, without behavioral disturbance, psychotic disturbance, mood disturbance, and anxiety; Z79.82 Long term (current) use of aspirin; Z79.899 Other long term (current) drug therapy; Z88.8 Allergy status to other drugs, medicaments and biological substances

== ENCOUNTER → 2020-12-27 | Outpatient (REF) | payer MEDICARE, MEDICAID ==
[2020-12-27 16:22] LABS: ALBUMIN 3.5 GM/DL (3.2-5.2); BILIRUBIN,TOTAL 0.3 MG/DL (0.2-1.0); CALCIUM LEVEL 8.8 MG/DL (8.8-10.2); CHOLESTEROL RISK RATIO 2.619 (<5); CREATININE FOR GFR 1.31 MG/DL (0.70-1.30); FREE T4 0.73 NG/DL (0.76-1.46); GLOMERULAR FILTRATION RATE 56.5 (>42); POTASSIUM SERUM 4.4 MEQ/L (3.5-5.1); THYROID STIMULATING HORMONE 1.36 uIU/ML (0.358-3.740); TOTAL PROTEIN 6.8 GM/DL (6.4-8.2)
== END ==
LOC: M SFHCPLAZ 12:25
PROVIDERS: ATTEND Physician Assistant Medical
DX: E03.9 Hypothyroidism, unspecified (principal); E78.2 Mixed hyperlipidemia; Z12.5 Encounter for screening for malignant neoplasm of prostate
CPT/HCPCS: 36415; 80053; 80061; 83880; 84439; 84443; G0103; G0463

== ENCOUNTER → 2021-01-10 | Outpatient (REF) | payer MEDICARE, MEDICAID ==
[2021-01-10 16:11] LABS: ALBUMIN 3.8 GM/DL (3.2-5.2); BILIRUBIN,TOTAL 0.2 MG/DL (0.2-1.0); CALCIUM LEVEL 9.1 MG/DL (8.8-10.2); CREATININE FOR GFR 1.88 MG/DL (0.70-1.30); GLOMERULAR FILTRATION RATE 37.2 (>42); POTASSIUM SERUM 4.3 MEQ/L (3.5-5.1); TOTAL PROTEIN 7.2 GM/DL (6.4-8.2)
== END ==
LOC: M SFHCPLAZ 12:53
PROVIDERS: ATTEND Physician Assistant Medical
DX: N18.30 Chronic kidney disease, stage 3 unspecified (principal); E87.70 Fluid overload, unspecified; R06.02 Shortness of breath

== ENCOUNTER → 2021-01-23 | Outpatient (REF) | payer MEDICARE, MEDICAID ==
[~2021-01-23] MED LIST changes: +DULO1CAP5 PO; +FURO20TA2 PO; +LISI20TA33 PO; +METO1TAB32 PO
[2021-01-23 14:01] LABS: CALCIUM LEVEL 9.5 MG/DL (8.8-10.2); CREATININE FOR GFR 1.54 MG/DL (0.70-1.30); GLOMERULAR FILTRATION RATE 46.9 (>42); POTASSIUM SERUM 4.4 MEQ/L (3.5-5.1)
[2021-01-23 14:02] LABS: ALBUMIN 3.6 GM/DL (3.2-5.2); BILIRUBIN,TOTAL 0.3 MG/DL (0.2-1.0); TOTAL PROTEIN 6.9 GM/DL (6.4-8.2)
== END ==
LOC: M SFHCPLAZ 09:42
PROVIDERS: ATTEND Physician Assistant Medical
DX: N18.30 Chronic kidney disease, stage 3 unspecified (principal); R56.9 Unspecified convulsions; Z51.81 Encounter for therapeutic drug level monitoring

== ENCOUNTER → 2021-01-23 | Outpatient (CLI) | payer MEDICARE, MEDICAID | LOC: M PLALAB 09:33 | PROVIDERS: ATTEND Physician Assistant Medical | DX: R56.9 Unspecified convulsions (principal); Z51.81 Encounter for therapeutic drug level monitoring ==

== ENCOUNTER 2021-02-04 13:10 | Emergency (ER) | payer MEDICARE, MEDICAID ==
[~2021-02-04 13:10] MED LIST changes: -DULO1CAP5 PO; -FURO20TA2 PO; -LISI20TA33 PO; -METO1TAB32 PO
--- NOTE | 2021-02-04 13:56 | REP ---
INDICATION: CHEST PAIN. COMPARISON: 02/10/2020. TECHNIQUE: Single portable AP view of the chest was performed. FINDINGS: There is no acute infiltrate or pulmonary edema. Lungs are clear. The heart is not significantly enlarged. The mediastinal silhouette is unremarkable, except for some calcification of the thoracic aorta. The visualized osseous structures are intact. IMPRESSION: No acute pulmonary disease. <Electronically signed by Yuri Chu > 02/04/21 3320
[2021-02-04 14:07] LABS: BASO # 0.1 10^3/uL (0.0-0.2); BASO % 1.2 % (0.0-1.0); EOS # 1.1 10^3/uL (0.0-0.5); EOS % 10.7 % (0.0-3.0); HEMATOCRIT 33.9 % (42.0-52.0); HEMOGLOBIN 11.5 g/dl (13.5-17.5); LYMPH # 2.9 10^3/uL (1.5-5.0); LYMPH % 27.4 % (24.0-44.0); MEAN CORPUSCULAR HEMOGLOBIN 32.5 pg (27.0-33.0); MEAN CORPUSCULAR HGB CONC 33.9 g/dl (32.0-36.5); MEAN CORPUSCULAR VOLUME 95.8 fl (80.0-96.0); MONO # 1.3 10^3/uL (0.0-0.8); MONO % 12.3 % (2.0-8.0); NEUTROPHILS % 47.5 % (36.0-66.0); PLATELET COUNT, AUTOMATED 179 10^3/uL (150-450); RED BLOOD COUNT 3.54 10^6/uL (4.30-6.10); WHITE BLOOD COUNT 10.5 10^3/uL (4.0-10.0)
[2021-02-04 14:38] LABS: ALBUMIN 3.5 GM/DL (3.2-5.2); ALT/SGPT 28 U/L (12-78); BILIRUBIN,DIRECT < 0.1 MG/DL (0.0-0.2); BILIRUBIN,TOTAL 0.2 MG/DL (0.2-1.0); CK-MB VALUE MASS 2.4 NG/ML (<3.6); CPK CREATINE PHOSPHOKINASE 299 U/L (39-308); LIPASE 244 U/L (73-393); NT-PRO BNP 255 PG/ML (<450); TOTAL PROTEIN 6.7 GM/DL (6.4-8.2); TROPONIN I < 0.02 NG/ML (< 0.10)
[2021-02-04] MEDS ORDERED: LISI20TA33 PO (15:43)
[2021-02-04] MEDS ORDERED: DULO1CAP5 PO (15:43)
[2021-02-04] MEDS ORDERED: METO1TAB32 PO (15:43)
[2021-02-04] MEDS ORDERED: FURO20TA2 PO (15:43)
[2021-02-04 17:23] VITALS: BP 152/78
--- NOTE | 2021-02-05 05:54 | ECGEPIP ---
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
== END 2021-02-04 17:42 | disposition home or self-care (01) ==
LOC: M ED 13:10
DX: I45.19 Other right bundle-branch block (principal); R07.89 Other chest pain; R06.02 Shortness of breath; I10 Essential (primary) hypertension; E78.5 Hyperlipidemia, unspecified; K21.9 Gastro-esophageal reflux disease without esophagitis; K57.92 Diverticulitis of intestine, part unspecified, without perforation or abscess without bleeding; F41.9 Anxiety disorder, unspecified; Z90.49 Acquired absence of other specified parts of digestive tract; F17.200 Nicotine dependence, unspecified, uncomplicated; Z79.82 Long term (current) use of aspirin; Z79.899 Other long term (current) drug therapy; Z88.8 Allergy status to other drugs, medicaments and biological substances

== ENCOUNTER → 2021-02-12 | Outpatient (CLI) | payer MEDICARE, OTHER ==
[~2021-02-12] MED LIST changes: +DULO1CAP5 PO; +E-Z-GAS II EFFERVESCENT PACKET (SODIUM BICARB./CITRIC ACID/SIMETHICONE) As Ordered ONE; +E-Z-HD 98% w/w 340GM SUSP BTL As Ordered ONE; +E-Z-PAQUE 96% w/w SUSP 176GM BTL As Ordered ONE; +FURO20TA2 PO; +LISI20TA33 PO; +METO1TAB32 PO
--- NOTE | 2021-02-12 17:07 | REP ---
INDICATION: GERD. COMPARISON: None TECHNIQUE: This procedure was performed by Connie Beck, [facility], under the direct supervision of Dr. Houston. Images were reviewed with Dr. Houston prior to dictation. Liquid barium and gas producing crystals were given in the erect position, as well as liquid barium in the prone oblique position in order to perform a double contrast upper GI examination. FINDINGS: A single view PA chest x-ray is submitted as a casting machine control board operator film. The superior mediastinal structures are midline. The heart size is within normal limits. The lungs are clear.The abdominal casting machine control board operator film shows no organomegaly or pathological masses. Multiple surgical deloris are visualized throughout the abdomen. There is borderline dilated small bowel loops with no evidence of obstruction. The oral and pharyngeal stages of deglutition were unremarkable. Esophageal transport is prompt and efficient and there is no evidence of esophagitis, stricture, or mucosal ring. There is no evidence of a hiatal hernia. Gastroesophageal reflux was visualized to the level of the jessica. The stomach higgins are normally outlined. The rugal folds are smooth and regular. There is no gastritis, neoplasm, or ulcerative disease. The duodenal higgins are normally outlined. The mucosal folds are smooth and regular. There is no duodenitis, peptic ulcer disease or neoplasm. The visualized portion of the proximal small bowel appears normal in course and caliber. IMPRESSION: Gastroesophageal reflux to the level of the jessica. 0.4 minutes of fluoroscopy time was utilized for this procedure. Some fluoroscopic images are performed with last image hold technology. These images require no additional radiation. <Electronically signed by Connie Beck > 02/12/21 1601 <Electronically signed by Stanton Houston > 02/12/21 [id number]
== END ==
LOC: M RAD 09:27
PROVIDERS: ATTEND Physician Assistant Medical
DX: K21.9 Gastro-esophageal reflux disease without esophagitis (principal)

== ENCOUNTER → 2021-03-04 | Outpatient (CLI) | payer MEDICARE, OTHER ==
[~2021-03-04] MED LIST changes: -E-Z-GAS II EFFERVESCENT PACKET (SODIUM BICARB./CITRIC ACID/SIMETHICONE) As Ordered ONE; -E-Z-HD 98% w/w 340GM SUSP BTL As Ordered ONE; -E-Z-PAQUE 96% w/w SUSP 176GM BTL As Ordered ONE
--- NOTE | 2021-03-04 16:51 | REP ---
INDICATION: DYSPHAGIA UNSPECIFIED. COMPARISON: None. TECHNIQUE: The procedure was performed by KELLY Spears, under the direct supervision of Dr. Chu. The procedure was performed with Diana Briggs from speech pathology present. 5 ml aliquots of thin, pudding, mixed fruit, soft food, hard food and pill consistency barium was administered. FINDINGS: Penetration and aspiration was visualized with thin and mixed consistency barium. The detailed report of this examination will be provided by speech pathology. IMPRESSION: Penetration and aspiration were visualized, a detailed report will be provided by speech pathology. 2.5 minutes of fluoroscopy time was utilized for this procedure. Some fluoroscopic images are performed with last image hold technology. These images require no additional radiation <Electronically signed by Connie Beck > 03/04/21 1252 <Electronically signed by Yuri Chu > 03/04/21 1067
== END ==
LOC: M ST 09:33
PROVIDERS: ATTEND Physician Assistant Medical
DX: R13.10 Dysphagia, unspecified (principal)

== ENCOUNTER 2021-03-28 13:56 | Emergency (ER) | payer MEDICARE, OTHER ==
[~2021-03-28] VITALS: Ht 180.3 cm; Wt 95.5 kg
[~2021-03-28 13:56] MED LIST changes: -DOXY100C37 PO; +DOXY1CAP62 PO
[2021-03-28] MEDS ORDERED: KP F1200 PO (14:30)
[2021-03-28 15:49] LABS: BASO # 0.1 10^3/uL (0.0-0.2); BASO % 1.1 % (0.0-1.0); EOS # 0.8 10^3/uL (0.0-0.5); EOS % 8.8 % (0.0-3.0); LYMPH # 2.8 10^3/uL (1.5-5.0); LYMPH % 31.8 % (24.0-44.0); MEAN CORPUSCULAR HEMOGLOBIN 32.5 pg (27.0-33.0); MEAN CORPUSCULAR HGB CONC 34.3 g/dl (32.0-36.5); MEAN CORPUSCULAR VOLUME 94.9 fl (80.0-96.0); MONO # 1.1 10^3/uL (0.0-0.8); MONO % 12.6 % (2.0-8.0); NEUTROPHILS # 3.9 10^3/uL (1.5-8.5); NEUTROPHILS % 44.8 % (36.0-66.0); PLATELET COUNT, AUTOMATED 184 10^3/uL (150-450); RED BLOOD COUNT 3.69 10^6/uL (4.30-6.10); WHITE BLOOD COUNT 8.8 10^3/uL (4.0-10.0)
[2021-03-28 16:05] LABS: C REACTIVE PROTEIN QUANTITATIV 0.3 MG/DL (0.00-0.30); CALCIUM LEVEL 8.3 MG/DL (8.8-10.2); CREATININE FOR GFR 1.47 MG/DL (0.70-1.30); GLOMERULAR FILTRATION RATE 49.3 (>42); POTASSIUM SERUM 3.8 MEQ/L (3.5-5.1)
--- NOTE | 2021-03-28 16:11 | REP ---
INDICATION: testicular pain r/o torsion. COMPARISON: None. TECHNIQUE: Real-time sonographic evaluation of scrotum and contents performed. FINDINGS: The testicles are normal in size and echotexture, right testicle measuring 4.4 x 2.3 x 3.0 cm and left testicle 4.2 x 2.1 x 2.3 cm. There is no testicular mass or torsion, blood flow is seen in each testicle with duplex Doppler evaluation. There is a 3 mm calcification along the surface of the right testicle. Doppler evaluation shows that the left testis may be mildly hyperemic, raising the possibility of orchitis. Multiple cystic structures are seen in each epididymis, the largest on the right measures 4 mm in diameter and the largest on the left measures 10 mm in diameter. IMPRESSION: Possible left-sided orchitis. No evidence of testicular mass or torsion. <Electronically signed by Yuri Chu > 03/28/21 [id number]
[2021-03-28 16:23] LABS: ERYTHROCYTE SEDIMENTATION RATE 8 mm/hr (0-20)
[2021-03-28] MEDS ORDERED: LevoFLOXacin 500 MG TABLET PO ONE (17:00)
[2021-03-28] MEDS ORDERED: FLUCONAZOLE 50MG TABLET PO ONE (17:00)
[2021-03-28] MEDS ORDERED: LEVO500T3 PO (17:06)
[2021-03-28 17:14] VITALS: BP 148/75
[2021-03-28 18:43] LABS: GC DNA AMPLIFICATION NEGATIVE (NEGATIVE)
== END 2021-03-28 17:53 | disposition home or self-care (01) ==
LOC: M ED 13:56
DX: N45.2 Orchitis (principal); I10 Essential (primary) hypertension; R56.9 Unspecified convulsions; N40.0 Benign prostatic hyperplasia without lower urinary tract symptoms; K21.9 Gastro-esophageal reflux disease without esophagitis; F32.9 Major depressive disorder, single episode, unspecified; Z87.442 Personal history of urinary calculi; G30.9 Alzheimer's disease, unspecified; J44.9 Chronic obstructive pulmonary disease, unspecified; Z90.49 Acquired absence of other specified parts of digestive tract; Z87.891 Personal history of nicotine dependence

== ENCOUNTER 2021-05-15 15:43 | Emergency (ER) | payer MEDICAID, MEDICARE, OTHER ==
[~2021-05-15] VITALS: Ht 180.3 cm; Wt 91.4 kg
[~2021-05-15 15:43] MED LIST changes: +KP F1200 PO; +LEVO500T3 PO
[2021-05-15 15:44] VITALS: BP 131/84
== END 2021-05-15 16:21 | disposition left against medical advice (07) ==
LOC: M ED 15:43
DX: Z53.21 Procedure and treatment not carried out due to patient leaving prior to being seen by health care provider (principal)

== ENCOUNTER 2021-05-25 10:37 | Emergency (ER) | payer MEDICARE, MEDICAID ==
[~2021-05-25] VITALS: Ht 180.3 cm; Wt 92.7 kg
[2021-05-25] MEDS ORDERED: BOOSTRIX/ADACEL VACCINE (DIPHTH/PERTUSS/ACELL/TETANUS) 0.5ML SYR IM ONE (12:45)
[2021-05-25] MEDS ORDERED: ACETAMINOPHEN 500 MG TAB PO ONE (12:45)
--- NOTE | 2021-05-25 13:31 | REP ---
INDICATION: fall. COMPARISON: Right knee, 06/27/2018. TECHNIQUE: Four views of both knees were obtained. FINDINGS: Four views of the right knee demonstrate mild arthritis of the patellofemoral joint and the medial and lateral joint space compartments of the knee. There is no evidence of fracture or dislocation. There is no knee joint effusion. The periarticular soft tissues are. Four views of the left knee demonstrate moderate arthritis of the medial joint space compartment. There is mild arthritis of the patellofemoral joint and the lateral joint space compartment of the knee. There is no evidence of fracture or dislocation. There is no knee joint effusion. There is enthesopathy of the patella. The periarticular soft tissues are. IMPRESSION: 1. Mild tricompartment arthritis of the right knee without knee joint effusion. 2. Xilg-ea-fwarutjo tricompartment arthritis of the left knee without knee joint effusion. 3. Enthesopathy of the left patella. <Electronically signed by Weston Carter > 05/25/21 [id number]
--- NOTE | 2021-05-25 13:35 | REP ---
INDICATION: fall. COMPARISON: Right ankle, 06/27/2019. TECHNIQUE: Four views of both ankles were obtained. FINDINGS: Four views of the right ankle demonstrate no evidence of fracture or dislocation. There is no significant arthropathy. There is a posterior heel spur. The periarticular soft tissues are normal. Four views of the left ankle demonstrate no evidence of fracture or dislocation. There is no significant arthropathy. There is a posterior heel spur. The periarticular soft tissues are normal. IMPRESSION: 1. No evidence of fracture or significant arthropathy of either ankle. 2. Bilateral posterior heel spurs. <Electronically signed by Weston Carter > 05/25/21 0544
--- NOTE | 2021-05-25 13:37 | REP ---
INDICATION: fall. COMPARISON: Left foot, 11/09/2018; right foot, 01/14/2014. TECHNIQUE: Four views of both feet were obtained. FINDINGS: Four views of the right foot show no evidence of fracture or significant arthropathy. There is a posterior heel spur. There are no soft tissue abnormalities. Four views of the left foot show no evidence of acute fracture or significant arthropathy. There is a healed fracture of the 3rd metatarsal. There is a posterior heel spur. There are no soft tissue abnormalities. IMPRESSION: 1. No evidence of fracture or significant arthropathy. 2. Posterior heel spurs bilaterally. 3. Other findings as noted. <Electronically signed by Weston Carter > 05/25/21 2697
[2021-05-25] MEDS ORDERED: NEOSPORIN OINT 0.9 GM PKT TOP ONE (14:40)
[2021-05-25 15:25] VITALS: BP 139/63
== END 2021-05-25 15:47 | disposition home or self-care (01) ==
LOC: M ED 10:37
DX: S83.91XA Sprain of unspecified site of right knee, initial encounter (principal); S93.401A Sprain of unspecified ligament of right ankle, initial encounter; S80.211A Abrasion, right knee, initial encounter; S80.212A Abrasion, left knee, initial encounter; S90.415A Abrasion, left lesser toe(s), initial encounter; M17.0 Bilateral primary osteoarthritis of knee; M77.31 Calcaneal spur, right foot; M77.32 Calcaneal spur, left foot; M76.892 Other specified enthesopathies of left lower limb, excluding foot; Z87.81 Personal history of (healed) traumatic fracture; W19.XXXA Unspecified fall, initial encounter; Y92.410 Unspecified street and highway as the place of occurrence of the external cause; Y93.89 Activity, other specified; Y99.9 Unspecified external cause status; E03.9 Hypothyroidism, unspecified; I10 Essential (primary) hypertension; E78.5 Hyperlipidemia, unspecified; K21.9 Gastro-esophageal reflux disease without esophagitis; F41.9 Anxiety disorder, unspecified; F32.9 Major depressive disorder, single episode, unspecified; G40.909 Epilepsy, unspecified, not intractable, without status epilepticus; F03.90 Unspecified dementia, unspecified severity, without behavioral disturbance, psychotic disturbance, mood disturbance, and anxiety; F17.200 Nicotine dependence, unspecified, uncomplicated; Z79.82 Long term (current) use of aspirin; Z79.899 Other long term (current) drug therapy; Z88.8 Allergy status to other drugs, medicaments and biological substances

== ENCOUNTER → 2021-05-28 | Outpatient (CLI) | payer MEDICARE, MEDICAID ==
[~2021-05-28] MED LIST changes: +ISOVUE-300 61% 50ML VIAL As Ordered ONE; +LIDOCAINE 1% MDV 20ML VIAL As Ordered ONE; +TRIAMCINOLONE ACETONIDE SUSP 40 MG/ML VIAL (J3301) As Ordered ONE
--- NOTE | 2021-05-28 16:43 | REP ---
INDICATION: LT HIP OA. COMPARISON: None. TECHNIQUE: The procedure was performed under the direct supervision of Dr. Chu. The benefits and risks including but not limited to pain infection and bleeding and anaphylaxis were explained to the patient and informed consent was obtained. The left femoral neck was localized using fluoroscopic guidance. The skin was prepped and draped in a sterile fashion. 1% lidocaine was used as a local anesthetic. Using fluoroscopic guidance, and last image hold technology, a 22-gauge spinal needle was inserted and advanced to the femoral neck. 0.5 ml of Isovue-300 was injected to verify placement. Six ml of a solution containing 5 ml of 1% Xylocaine and 1 mL of Kenalog 40 mg was injected. The needle was then removed. The patient tolerated the procedure well and there were no immediate complications. Less than 6 seconds of fluoro time was utilized for this procedure. FINDINGS: None IMPRESSION: Fluoro guidance for left hip injection <Electronically signed by Otoniel Florez > 05/28/21 [id number] <Electronically signed by Yuri Chu > 05/28/21 [id number]
== END ==
LOC: M RADPRO 12:50
PROVIDERS: ATTEND Physician Assistant
DX: M16.12 Unilateral primary osteoarthritis, left hip (principal)
CPT/HCPCS: 20610; 77002; J3301; Q9967

== ENCOUNTER → 2021-06-12 | Outpatient (CLI) | payer MEDICARE ==
[~2021-06-12] MED LIST changes: +D31000TA2 PO; -ISOVUE-300 61% 50ML VIAL As Ordered ONE; -LIDOCAINE 1% MDV 20ML VIAL As Ordered ONE; -TRIAMCINOLONE ACETONIDE SUSP 40 MG/ML VIAL (J3301) As Ordered ONE
== END ==
LOC: M LABSMTC 10:34
PROVIDERS: ATTEND Anesthesiology
DX: Z01.812 Encounter for preprocedural laboratory examination (principal); Z20.822 Contact with and (suspected) exposure to COVID-19

== ENCOUNTER 2021-06-17 13:16 | Day surgery (SDC) | payer MEDICARE, MEDICAID ==
[~2021-06-17] VITALS: Ht 180.3 cm; Wt 93.4 kg
[~2021-06-17 13:16] MED LIST changes: +NS 1,000 ML IV ONE
[2021-06-17] MEDS ORDERED: fentaNYL 100 MCG/2 ML INJECTION (J3010) As Ordered ONE (13:23)
[2021-06-17] MEDS ORDERED: propofoL 200 MG/20 ML VIAL As Ordered ONE (13:24)
[2021-06-17] MEDS ORDERED: LIDOCAINE 2% 100MG/5ML SDV (FOR ANES.) As Ordered ONE (13:24)
--- NOTE | 2021-06-17 14:02 | ROOR ---
Patient Name: Duglas Pappas Procedure Date: 06/17/2021 1:46 PM Date of : 1945 Age: 76 Room: [facility] Gender: Male Note Status: Finalized Procedure: Upper GI endoscopy Indications: Oral phase dysphagia, Oropharyngeal phase dysphagia Providers: Raul Romero MD Referring MD: Racheal AYOUB Requesting Provider: Medicines: Monitored Anesthesia Care Complications: No immediate complications. Procedure: Pre-Anesthesia Assessment: - The heart rate, respiratory rate, oxygen saturations, blood pressure, adequacy of pulmonary ventilation, and response to care were monitored throughout the procedure. The Endoscope was introduced through the mouth, and advanced to the second part of duodenum. The upper GI endoscopy was accomplished without difficulty. The patient tolerated the procedure well. Findings: The esophagus was normal. The stomach was normal. The examined duodenum was normal. No endoscopic abnormality was evident in the esophagus to explain the patient's complaint of dysphagia. It was decided, however, to proceed with dilation of the entire esophagus. The scope was withdrawn. Dilation was performed with a Lopez dilator with no resistance at 54 Fr. The dilation site was examined following endoscope reinsertion and showed no change. Impression: - Normal esophagus. - Normal stomach. - Normal examined duodenum. - No endoscopic esophageal abnormality to explain patient's dysphagia. Empiric dilation performed with 54F Lopez dilator. - No specimens collected. Recommendation: - Observe patient's clinical course. - Your choking spells are most likely related to poorly fitting dentures. I suggest you see a denturist for adjustment. - Return to referring physician as previously scheduled. Procedure Code(s): --- Professional --- 12185, Esophagogastroduodenoscopy, flexible, transoral; diagnostic, including collection of specimen(s) by brushing or washing, when performed (separate procedure) 68250, Dilation of esophagus, by unguided sound or bougie, single or multiple passes Diagnosis Code(s): --- Professional --- R13.12, Dysphagia, oropharyngeal phase R13.11, Dysphagia, oral phase CPT copyright 2019 [employer]. All rights reserved. The codes documented in this report are preliminary and upon journeyman tool and die maker review may be revised to meet current compliance requirements. Raul Romero MD Raul Romero MD 06/17/2021 2:01:47 PM Electronically signed by Raul Romero MD Number of Addenda: 0 Note Initiated On: 06/17/2021 1:46 PM Estimated Blood Loss: Estimated blood loss: none.
[2021-06-17 14:20] VITALS: BP 139/59
== END 2021-06-17 14:32 | disposition home or self-care (01) ==
LOC: M OPP 13:16
PROVIDERS: ATTEND Internal Medicine Gastroenterology
DX: R13.12 Dysphagia, oropharyngeal phase (principal); R13.11 Dysphagia, oral phase; Z79.82 Long term (current) use of aspirin; Z79.899 Other long term (current) drug therapy; Z88.8 Allergy status to other drugs, medicaments and biological substances; F17.210 Nicotine dependence, cigarettes, uncomplicated
CPT/HCPCS: 43235; 43450; J3010

== ENCOUNTER 2021-06-20 09:52 | Emergency (ER) | payer MEDICARE, MEDICAID ==
[~2021-06-20] VITALS: Ht 180.3 cm; Wt 93.6 kg
[~2021-06-20 09:52] MED LIST changes: -NS 1,000 ML IV ONE
[2021-06-20 10:40] LABS: BASO # 0.1 10^3/uL (0.0-0.2); BASO % 0.3 % (0.0-1.0); EOS # 0.2 10^3/uL (0.0-0.5); EOS % 0.9 % (0.0-3.0); HEMATOCRIT 33.5 % (42.0-52.0); HEMOGLOBIN 11.4 g/dl (13.5-17.5); LYMPH # 3.3 10^3/uL (1.5-5.0); LYMPH % 18.8 % (24.0-44.0); MEAN CORPUSCULAR HEMOGLOBIN 32.6 pg (27.0-33.0); MEAN CORPUSCULAR VOLUME 95.7 fl (80.0-96.0); MONO # 2.5 10^3/uL (0.0-0.8); MONO % 14.1 % (2.0-8.0); NEUTROPHILS # 11.5 10^3/uL (1.5-8.5); NEUTROPHILS % 65.3 % (36.0-66.0); PLATELET COUNT, AUTOMATED 141 10^3/uL (150-450); WHITE BLOOD COUNT 17.5 10^3/uL (4.0-10.0)
[2021-06-20 11:19] LABS: BLOOD UREA NITROGEN 18 MG/DL (7-18); CALCIUM LEVEL 8.9 MG/DL (8.8-10.2); CARBON DIOXIDE LEVEL 28 MEQ/L (21-32); CHLORIDE LEVEL 104 MEQ/L (98-107); CREATININE FOR GFR 1.37 MG/DL (0.70-1.30); GLOMERULAR FILTRATION RATE 53.5 (>42); GLUCOSE, FASTING 96 MG/DL (70-100); SODIUM LEVEL 136 MEQ/L (136-145)
--- NOTE | 2021-06-20 11:33 | REP ---
INDICATION: chest pain. COMPARISON: 02/04/2021 the latest prior also portable TECHNIQUE: Portable FINDINGS: The technique utilized in obtaining the radiograph has magnified the cardiac silhouette and accentuated the interstitial markings. The cardiomediastinal silhouette is unchanged. The heart is not enlarged. The lung mon are clear and stable. The left pleural angle is sharp, however, the right pleural angle has not been included on the radiograph. There is no change in the osseous structures. IMPRESSION: There is no acute cardiopulmonary disease. The examination is limited as described above. Consider repeat if clinically relevant. <Electronically signed by Angel Kelley > 06/20/21 1121
[2021-06-20 11:52] LABS: ALBUMIN 2.7 GM/DL (3.2-5.2); ALT/SGPT 33 U/L (12-78); BILIRUBIN,DIRECT < 0.1 MG/DL (0.0-0.2); BILIRUBIN,TOTAL 0.2 MG/DL (0.2-1.0); LIPASE 279 U/L (73-393); TOTAL PROTEIN 6.6 GM/DL (6.4-8.2)
[2021-06-20] MEDS ORDERED: ISOVUE-370 76% 100ML VIAL As Ordered ONE (12:01)
--- NOTE | 2021-06-20 12:51 | REP ---
INDICATION: abd pain, leukocytosis. COMPARISON: 10/05/2008 TECHNIQUE: Standard helical technique after the intravenous administration of 100 cc Isovue 3 FINDINGS: Respiratory motion artifact obscures the detail on all images particularly the mid abdominal region. The renal outlines are obscured by the artifact. The kidneys are essentially unchanged. There are small bilateral renal cysts. The liver, spleen, pancreas, and adrenal glands are within normal limits. The patient is status post cholecystectomy. The abdominal aorta and para-aortic regions are within normal limits. There is no evidence of free fluid or free air. There is no evidence of a mass or adenopathy. The bowel loops and the mesenteries are within normal limits. Postop changes and descending colon diverticulosis again noted status quo. Bone window technique throughout the examination shows no evidence of an acute osseous abnormality. IMPRESSION: Findings and limitations as described above. There is no evidence of acute disease. <Electronically signed by Angel Kelley > 06/20/21 [id number]
[2021-06-20 17:35] VITALS: BP 130/67
--- NOTE | 2021-06-20 21:38 | ECGEPIP ---
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
[2021-06-21] MEDS ORDERED: CEFD1CAP8 PO (21:33)
== END 2021-06-20 17:37 | disposition home or self-care (01) ==
LOC: M ED 09:52 → EDBD 09:52 → M ED 17:37
DX: R10.9 Unspecified abdominal pain (principal); I45.19 Other right bundle-branch block; F32.9 Major depressive disorder, single episode, unspecified; J44.9 Chronic obstructive pulmonary disease, unspecified; N40.0 Benign prostatic hyperplasia without lower urinary tract symptoms; K21.9 Gastro-esophageal reflux disease without esophagitis; G30.9 Alzheimer's disease, unspecified; Z87.442 Personal history of urinary calculi; Z79.899 Other long term (current) drug therapy; Z88.8 Allergy status to other drugs, medicaments and biological substances
CPT/HCPCS: 71045; 74177; 80048; 80076; 83690; 85025; 87798; 93005; 93041; 99284; Q9967

== ENCOUNTER 2021-06-21 13:55 | Emergency (ER) | payer MEDICARE, MEDICAID ==
[~2021-06-21] VITALS: Ht 180.3 cm; Wt 93.0 kg
--- NOTE | 2021-06-21 15:55 | REP ---
INDICATION: weakness, falls. COMPARISON: February 10, 2020. TECHNIQUE: Helical scanning is acquired. 5 mm axial images were reformatted. Coronal MPR images were generated. FINDINGS: Digital preliminary cad engineer radiograph is unremarkable. The patient is edentulous. Bony calvarium is intact. No skull fracture or bony destructive lesion is seen. The visualized paranasal sinuses are clear. On soft tissue window settings, there is generalized volume loss again noted. There is mild periventricular white matter low density consistent with microvascular ischemic changes. There is no evidence of intracranial hemorrhage. No extra-axial fluid collection is seen. No contusion, mass, or midline shift is seen. IMPRESSION: Generalized volume loss and mild small vessel changes. No acute intracranial abnormality. <Electronically signed by Stanton Houston > 06/21/21 [id number]
--- NOTE | 2021-06-21 15:58 | REP ---
INDICATION: weakness, falls. COMPARISON: None. TECHNIQUE: Helical scanning is acquired and overlapping 2 mm high resolution axial images were generated and reviewed at bone and soft tissue window settings. Coronal and sagittal multiplanar re-formations images are generated. FINDINGS: There is no evidence of cervical spine element fracture. No skull base fracture is seen. Cervical vertebral body heights are preserved. Alignment is normal. Facet joints are normally aligned bilaterally at each cervical level on multiplanar re-formations images. There is no evidence of intraspinal or paraspinal hematoma. No extra vertebral abnormality is seen. There is moderate discogenic spurring anteriorly at the C4-5 and to a lesser extent C5-6 disc spaces. There is mild levoconvex curvature in the AP view on coronal MPR images. Minimal facet hypertrophy is present. The lung apices are clear. IMPRESSION: Degenerative spondylosis changes mild in degree. No traumatic or other acute abnormality. <Electronically signed by Stanton Houston > 06/21/21 1901
[2021-06-21 16:30] LABS: HEMATOCRIT 32.8 % (42.0-52.0); MEAN CORPUSCULAR HEMOGLOBIN 32.1 pg (27.0-33.0); MEAN CORPUSCULAR HGB CONC 33.5 g/dl (32.0-36.5); MEAN CORPUSCULAR VOLUME 95.6 fl (80.0-96.0); PLATELET COUNT, AUTOMATED 143 10^3/uL (150-450); RED BLOOD COUNT 3.43 10^6/uL (4.30-6.10); WHITE BLOOD COUNT 12.9 10^3/uL (4.0-10.0)
[2021-06-21 16:53] LABS: LYMPHOCYTES 24 % (16-44); MONOCYTES 8 % (0-5); NEUTROPHILS 68 % (28-66); PLATELET ESTIMATE DECREASED (NORMAL)
[2021-06-21 16:57] LABS: ALBUMIN 2.6 GM/DL (3.2-5.2); ALT/SGPT 33 U/L (12-78); BILIRUBIN,DIRECT < 0.1 MG/DL (0.0-0.2); BILIRUBIN,TOTAL 0.2 MG/DL (0.2-1.0); BLOOD UREA NITROGEN 16 MG/DL (7-18); CALCIUM LEVEL 8.9 MG/DL (8.8-10.2); CARBON DIOXIDE LEVEL 28 MEQ/L (21-32); CHLORIDE LEVEL 106 MEQ/L (98-107); CREATININE FOR GFR 1.37 MG/DL (0.70-1.30); GLOMERULAR FILTRATION RATE 53.5 (>42); GLUCOSE, FASTING 127 MG/DL (70-100); LIPASE 156 U/L (73-393); POTASSIUM SERUM 3.6 MEQ/L (3.5-5.1); SODIUM LEVEL 140 MEQ/L (136-145)
[2021-06-21] MEDS ORDERED: NS 1,000 ML IV ONE (17:10)
[2021-06-21 17:40] LABS: INR 0.97; PROTHROMBIN TIME 13.3 SECONDS (12.7-14.5)
[2021-06-21 17:41] LABS: PARTIAL THROMBOPLASTIN TIME 28.8 SECONDS (25.9-37.0)
[2021-06-21 17:43] LABS: D-DIMER QUANT 1134.77 ng/ml (<500)
--- NOTE | 2021-06-21 17:44 | REP ---
INDICATION: fell. COMPARISON: Comparison radiograph May 25, 2021. TECHNIQUE: Four views of the right knee are provided. No sunrise view. FINDINGS: Four views of the right knee demonstrate non articular spurring at the superior pole of the patella. There is articular spurring at the inferior margin of the patella. There is mild joint space narrowing the medial compartment and medial compartment tibial spurring is seen. There is lateral compartment osteoarthritic spurring as well. No fracture or subluxation is seen. No opaque foreign body noted. Clothing artifact is seen over the distal thigh. There is no evidence of joint effusion. IMPRESSION: No fracture or subluxation seen. Three compartment osteoarthritis. Clothing artifact. <Electronically signed by Stanton Houston > 06/21/21 [id number]
[2021-06-21 17:48] VITALS: BP 117/67
[2021-06-21 18:07] LABS: CK-MB VALUE MASS < 1.0 NG/ML (<3.6); CPK CREATINE PHOSPHOKINASE 51 U/L (39-308); MB/CK RELATIVE INDEX 1.96 (< OR =4); NT-PRO BNP 223 PG/ML (<450); THYROID STIMULATING HORMONE 0.832 uIU/ML (0.358-3.740); TROPONIN I < 0.02 NG/ML (< 0.10)
[2021-06-21] MEDS ORDERED: ISOVUE-370 76% 100ML VIAL As Ordered ONE (18:29)
--- NOTE | 2021-06-21 19:36 | REPVR ---
PROCEDURE INFORMATION: Exam: CTA Chest With Contrast Exam date and time: 06/21/2021 6:52 PM Age: 76 years old Clinical indication: Other: Chest pain/weakness TECHNIQUE: Imaging protocol: Computed tomographic angiography of the chest with contrast. 3D rendering (Not supervised by radiologist): MIP and/or 3D reconstructed images were created by the technologist. Radiation optimization: All CT scans at this facility use at least one of these dose optimization techniques: automated exposure control; mA and/or kV adjustment per patient size (includes targeted exams where dose is matched to clinical indication); or iterative reconstruction. Contrast material: ISOVUE 370; Contrast volume: 75 ml; Contrast route: INTRAVENOUS (IV); COMPARISON: CR Chest, 1 view 06/20/2021 11:12 AM FINDINGS: Pulmonary arteries: Central pulmonary arteries show no intraluminal defect suggestive of clot. Pulmonary vascular/interstitial pattern does not suggest active pulmonary edema. Aorta: Thoracic aorta is ectatic and atherosclerotic. No focal aneurysm or dissection. Lungs: No suspicious lung mass or air space process. No central endobronchial lesion. Incidental calcified lung granulomas. Pleural spaces: No pleural effusion or pneumothorax. Heart: Peripheral pulmonary artery evaluation limited by cardiac and respiratory motion artifact. No overt cardiac enlargement or abnormal volume of pericardial fluid. Lymph nodes: Small, nonspecific mediastinal nodes are present. Bones/joints: Bony structures show no acute fracture or destructive process. Soft tissues: No asymmetric abnormality of the extrathoracic soft tissues. IMPRESSION: 1. No evidence of acute, central pulmonary embolus. Peripheral pulmonary arterial evaluation is limited by cardiac and respiratory motion artifact. 2. No other acute or concerning focal intrathoracic abnormality. Electronically signed by: Krish Jose On 06/21/2021 19:36:46 PM
[2021-06-21] MEDS ORDERED: cefTRIAXone SOD 1 GM in D5W MINI-BAG PLUS 50 ML IV ONE (20:00)
--- NOTE | 2021-06-21 20:07 | ECGEPIP ---
[facility] - ED Test Date: 2021-06-21 Pat Name: IVON RODRIGUEZ Department: Room: - Gender: Male Manager [place]: DANDRE : 1945 Requested By: LUIS MIGUEL BANUELOS PA-C Order Number: [id number] Reading MD: Britney Hamm Measurements Intervals [place] Rate: 73 P: 60 OR: 146 QRS: 44 QRSD: 112 T: 50 QT: 402 QTc: 442 Interpretive Statements Normal sinus rhythm Incomplete right bundle branch block NSTTW abnormalities similar 06/20/21 Electronically Signed on 06-21-2021 20:06:51 EDT by Britney Hamm
[2021-06-21] MEDS ORDERED: CEFD1CAP8 PO (21:33)
== END 2021-06-21 22:08 | disposition home or self-care (01) ==
LOC: EDBD 13:55 → M ED 13:55
DX: N39.0 Urinary tract infection, site not specified (principal); I45.19 Other right bundle-branch block; M17.11 Unilateral primary osteoarthritis, right knee; M47.812 Spondylosis without myelopathy or radiculopathy, cervical region; I10 Essential (primary) hypertension; E78.5 Hyperlipidemia, unspecified; F03.90 Unspecified dementia, unspecified severity, without behavioral disturbance, psychotic disturbance, mood disturbance, and anxiety; R56.9 Unspecified convulsions; J44.9 Chronic obstructive pulmonary disease, unspecified; K21.9 Gastro-esophageal reflux disease without esophagitis; E03.9 Hypothyroidism, unspecified; M54.9 Dorsalgia, unspecified; F41.9 Anxiety disorder, unspecified; F32.9 Major depressive disorder, single episode, unspecified; Z87.442 Personal history of urinary calculi; Z90.49 Acquired absence of other specified parts of digestive tract; F17.200 Nicotine dependence, unspecified, uncomplicated; Z79.82 Long term (current) use of aspirin; Z79.899 Other long term (current) drug therapy; Z88.8 Allergy status to other drugs, medicaments and biological substances
CPT/HCPCS: 70450; 71275; 72125; 73564; 80048; 80076; 81001; 82550; 82553; 83690; 83880; 84439; 84443; 84484; 85025; 85379; 85610; 85730; 87088; 87186; 93005; 96361; 96365; 99284; J0696; Q9967

== ENCOUNTER → 2021-06-27 | Outpatient (REF) | payer MEDICARE, MEDICAID ==
[~2021-06-27] MED LIST changes: +CEFD1CAP8 PO
[2021-07-01 23:11] LABS: PSA % FREE 5.3 % (.); PSA FREE 0.47 ng/mL; PSA TOTAL 8.8 ng/mL (0.0-4.0)
== END ==
LOC: M LAB REF 12:56
PROVIDERS: ATTEND Nurse Practitioner Family
DX: N40.1 Benign prostatic hyperplasia with lower urinary tract symptoms (principal)

== ENCOUNTER → 2021-07-15 | Outpatient (CLI) | payer MEDICARE, MEDICAID ==
[~2021-07-15] MED LIST changes: +DOXY-443 PO; -DOXY1CAP62 PO
--- NOTE | 2021-07-15 12:55 | REP ---
INDICATION: CKD STAGE 3, FREQUENCY OF URINATION. COMPARISON: 01/01/2016. TECHNIQUE: Real-time sonographic evaluation of the kidneys and urinary bladder is performed. FINDINGS: Renal cortical echogenicity pattern is normal bilaterally and contours are smooth. There is no hydronephrosis bilaterally. A cyst in the mid right kidney measures 1.3 cm. A cyst in the mid left kidney measures 1.7 cm. The right kidney measures 10.1 x 5.9 x 4.8 cm. Left renal dimensions are 11.8 x 5.6 x 5.8 cm. The bladder measures 9.6 x 8.7 x 7.0 cm, total volume 382 cc. Postvoid residual 143 cc, 37% of the original volume. Ureteral jets are visualized in the urinary bladder with Doppler color evaluation. No bladder mass or calculus is seen. IMPRESSION: No hydronephrosis. Bilateral renal cysts. Postvoid residual 37%. <Electronically signed by Yuri Chu > 07/15/21 [id number]
== END ==
LOC: M RAD 10:06
PROVIDERS: ATTEND Nurse Practitioner Family
DX: N18.31 Chronic kidney disease, stage 3a (principal); R35.0 Frequency of micturition; N28.1 Cyst of kidney, acquired

== ENCOUNTER → 2021-07-29 | Outpatient (CLI) | payer MEDICARE, MEDICAID ==
[2021-07-29 13:59] LABS: ALBUMIN 3.4 GM/DL (3.2-5.2); BILIRUBIN,TOTAL 0.3 MG/DL (0.2-1.0); CALCIUM LEVEL 9.3 MG/DL (8.8-10.2); CREATININE FOR GFR 1.4 MG/DL (0.70-1.30); FREE T4 0.74 NG/DL (0.76-1.46); GLOMERULAR FILTRATION RATE 52.2 (>42); POTASSIUM SERUM 3.9 MEQ/L (3.5-5.1); PTH INTACT 31.9 PG/ML (18.5-88.0); THYROID STIMULATING HORMONE 1.07 uIU/ML (0.358-3.740); TOTAL PROTEIN 7.1 GM/DL (6.4-8.2); VALPROIC ACID (DEPAKOTE) 72.2 UG/ML (50.0-100.0)
== END ==
LOC: M PLALAB 09:40
PROVIDERS: ATTEND Physician Assistant Medical
DX: E55.9 Vitamin D deficiency, unspecified (principal); F32.9 Major depressive disorder, single episode, unspecified; G40.909 Epilepsy, unspecified, not intractable, without status epilepticus; F41.8 Other specified anxiety disorders

== ENCOUNTER → 2021-09-06 | Outpatient (CLI) | payer MEDICARE, MEDICAID ==
[~2021-09-06] MED LIST changes: +BENA-8; -BENA20TA8; -CEFD1CAP8 PO; +CEFD300C41 PO; +DONE-1 PO; -DONETAB6 PO; -LEVO500T3 PO; +LEVO500T4 PO; -LISI-898; +LISI5TAB11
== END ==
LOC: M LAB 10:52
PROVIDERS: ATTEND Physician Assistant
DX: R97.20 Elevated prostate specific antigen [PSA] (principal)

== ENCOUNTER → 2021-09-06 | Outpatient (CLI) | payer MEDICARE, MEDICAID ==
[~2021-09-06] MED LIST changes: +ISOVUE-370 76% 100ML VIAL As Ordered ONE
== END ==
LOC: M RAD 10:50
PROVIDERS: ATTEND Physician Assistant Medical
DX: R59.0 Localized enlarged lymph nodes (principal); R05.3 Chronic cough; J43.9 Emphysema, unspecified; I70.0 Atherosclerosis of aorta; I25.10 Atherosclerotic heart disease of native coronary artery without angina pectoris; M79.89 Other specified soft tissue disorders; M48.53XD Collapsed vertebra, not elsewhere classified, cervicothoracic region, subsequent encounter for fracture with routine healing; R97.20 Elevated prostate specific antigen [PSA]
CPT/HCPCS: 36415; 70491; 71250; 84153; Q9967

== ENCOUNTER 2021-10-28 22:51 | Emergency (ER) | payer MEDICARE, MEDICAID ==
[~2021-10-28] VITALS: Ht 180.3 cm; Wt 94.5 kg
[~2021-10-28 22:51] MED LIST changes: -ISOVUE-370 76% 100ML VIAL As Ordered ONE
[2021-10-29 00:27] LABS: BASO # 0.1 10^3/uL (0.0-0.2); EOS # 0.6 10^3/uL (0.0-0.5); EOS % 7.2 % (0.0-3.0); HEMATOCRIT 31.9 % (42.0-52.0); HEMOGLOBIN 10.9 g/dl (13.5-17.5); LYMPH # 1.5 10^3/uL (1.5-5.0); LYMPH % 19.9 % (24.0-44.0); MEAN CORPUSCULAR HEMOGLOBIN 32.3 pg (27.0-33.0); MEAN CORPUSCULAR HGB CONC 34.2 g/dl (32.0-36.5); MEAN CORPUSCULAR VOLUME 94.7 fl (80.0-96.0); MONO # 1.4 10^3/uL (0.0-0.8); MONO % 18.7 % (2.0-8.0); PLATELET COUNT, AUTOMATED 163 10^3/uL (150-450); RED BLOOD COUNT 3.37 10^6/uL (4.30-6.10); WHITE BLOOD COUNT 7.6 10^3/uL (4.0-10.0)
[2021-10-29 00:48] LABS: CALCIUM LEVEL 8.7 MG/DL (8.8-10.2); CREATININE FOR GFR 1.62 MG/DL (0.70-1.30); GLOMERULAR FILTRATION RATE 44.1 (>42); POTASSIUM SERUM 4.3 MEQ/L (3.5-5.1)
[2021-10-29] MEDS ORDERED: ACETAMINOPHEN TAB 650MG DOSE (2X325MG) PO ONE (01:30)
[2021-10-29 02:30] VITALS: BP 104/59
[2021-10-29] MEDS ORDERED: dexameTHASONE 20MG/5ML VIAL (J1100 PER 1MG) IV ONE (03:05)
[2021-10-29 17:49] LABS: MAGNESIUM LEVEL 1.7 MG/DL (1.7-2.2)
== END 2021-10-29 03:26 | disposition home or self-care (01) ==
LOC: M ED 22:51
DX: J09.X2 Influenza due to identified novel influenza A virus with other respiratory manifestations (principal); M25.511 Pain in right shoulder; I45.19 Other right bundle-branch block; I50.9 Heart failure, unspecified; I10 Essential (primary) hypertension; F03.90 Unspecified dementia, unspecified severity, without behavioral disturbance, psychotic disturbance, mood disturbance, and anxiety; J44.9 Chronic obstructive pulmonary disease, unspecified; Z90.49 Acquired absence of other specified parts of digestive tract; Z79.82 Long term (current) use of aspirin; Z79.899 Other long term (current) drug therapy; Z88.8 Allergy status to other drugs, medicaments and biological substances
CPT/HCPCS: 71045; 73030; 80048; 83605; 83735; 84484; 85025; 87040; 87798; 93005; 96374; 99285; J1100

== ENCOUNTER → 2021-11-22 | Outpatient (CLI) | payer MEDICARE, MEDICAID ==
[~2021-11-22] MED LIST changes: -D31000TA2 PO; +VITA100093 PO
[2021-11-22 17:59] LABS: ALBUMIN 3.5 GM/DL (3.2-5.2); BILIRUBIN,TOTAL 0.2 MG/DL (0.2-1.0); CALCIUM LEVEL 9.3 MG/DL (8.8-10.2); CREATININE FOR GFR 1.99 MG/DL (0.70-1.30); GLOMERULAR FILTRATION RATE 34.8 (>42); POTASSIUM SERUM 4.1 MEQ/L (3.5-5.1); TOTAL PROTEIN 6.9 GM/DL (6.4-8.2)
== END ==
LOC: M PLALAB 14:18
PROVIDERS: ATTEND Physician Assistant Medical
DX: I95.1 Orthostatic hypotension (principal)

== ENCOUNTER → 2021-11-29 | Outpatient (CLI) | payer MEDICARE, MEDICAID ==
[2021-11-29 16:15] LABS: ALBUMIN 3.4 GM/DL (3.2-5.2); BILIRUBIN,TOTAL 0.2 MG/DL (0.2-1.0); CALCIUM LEVEL 8.8 MG/DL (8.8-10.2); CREATININE FOR GFR 1.54 MG/DL (0.70-1.30); GLOMERULAR FILTRATION RATE 46.7 (>42); POTASSIUM SERUM 4.1 MEQ/L (3.5-5.1)
== END ==
LOC: M PLALAB 13:54
PROVIDERS: ATTEND Physician Assistant Medical
DX: N17.9 Acute kidney failure, unspecified (principal)

== ENCOUNTER → 2022-01-24 | Outpatient (CLI) | payer MEDICAID, MEDICARE | LOC: M WHC 14:34 | PROVIDERS: ATTEND Nurse Practitioner Family | DX: N17.9 Acute kidney failure, unspecified (principal); R33.9 Retention of urine, unspecified; N39.0 Urinary tract infection, site not specified; N28.1 Cyst of kidney, acquired ==

== ENCOUNTER 2022-03-12 12:41 | Emergency (ER) | payer MEDICARE, MEDICAID ==
[2022-03-12 13:01] VITALS: BP 127/64
[2022-03-12] MEDS ORDERED: NORCO, ANEXSIA 5/325MG TABLET (HYDROcodone/ACETAMINOPHEN) PO ONE (13:55)
== END 2022-03-12 14:17 | disposition home or self-care (01) ==
LOC: EDBD 12:41 → M ED 12:41
DX: S61.306A Unspecified open wound of right little finger with damage to nail, initial encounter (principal); W26.8XXA Contact with other sharp object(s), not elsewhere classified, initial encounter; F03.90 Unspecified dementia, unspecified severity, without behavioral disturbance, psychotic disturbance, mood disturbance, and anxiety; J44.9 Chronic obstructive pulmonary disease, unspecified; R56.9 Unspecified convulsions; K21.9 Gastro-esophageal reflux disease without esophagitis; Z87.442 Personal history of urinary calculi; E78.5 Hyperlipidemia, unspecified; F41.9 Anxiety disorder, unspecified; F32.A Depression, unspecified; Z88.8 Allergy status to other drugs, medicaments and biological substances; F17.210 Nicotine dependence, cigarettes, uncomplicated; Z79.82 Long term (current) use of aspirin; Z79.899 Other long term (current) drug therapy

== ENCOUNTER 2022-06-05 09:28 | Emergency (ER) | payer MEDICAID, MEDICARE ==
[~2022-06-05] VITALS: Ht 180.3 cm; Wt 93.2 kg
[~2022-06-05 09:28] MED LIST changes: +FISH10005 PO; -FISH7.5C PO; +LEVO1TAB39 PO; -LEVO500T4 PO
[2022-06-05 09:38] VITALS: BP 130/80
[2022-06-05] MEDS ORDERED: LIDOCAINE W/EPINEPHRINE 1% 20ML VIAL SC ONE (11:35)
[2022-06-05] MEDS ORDERED: BOOSTRIX/ADACEL VACCINE (DIPHTH/PERTUSS/ACELL/TETANUS) 0.5ML SYR IM.IMMUN ONE (11:35)
[2022-06-05] MEDS ORDERED: AUGMENTIN 875 MG TAB PO ONE (14:30)
[2022-06-05] MEDS ORDERED: KETOROLAC TROMETHAMINE 10 MG TAB PO ONE (14:35)
[2022-06-05] MEDS ORDERED: AMOX875T2 PO (15:01)
== END 2022-06-05 15:08 | disposition home or self-care (01) ==
LOC: EDBD 09:28 → M ED 09:28
DX: S02.32XA Fracture of orbital floor, left side, initial encounter for closed fracture (principal); S01.112A Laceration without foreign body of left eyelid and periocular area, initial encounter; S00.83XA Contusion of other part of head, initial encounter; V18.4XXA Pedal cycle driver injured in noncollision transport accident in traffic accident, initial encounter; Y92.099 Unspecified place in other non-institutional residence as the place of occurrence of the external cause; G40.909 Epilepsy, unspecified, not intractable, without status epilepticus; J44.9 Chronic obstructive pulmonary disease, unspecified; F17.200 Nicotine dependence, unspecified, uncomplicated; E03.9 Hypothyroidism, unspecified; Z79.82 Long term (current) use of aspirin; Z79.899 Other long term (current) drug therapy; Z79.890 Hormone replacement therapy; Z88.8 Allergy status to other drugs, medicaments and biological substances

== ENCOUNTER → 2022-06-13 | Outpatient (CLI) | payer MEDICARE ==
[~2022-06-13] MED LIST changes: +AMOX875T2 PO
== END ==
LOC: M RAD 10:36
PROVIDERS: ATTEND Physician Assistant Medical
DX: S22.32XD Fracture of one rib, left side, subsequent encounter for fracture with routine healing (principal); J84.10 Pulmonary fibrosis, unspecified

== ENCOUNTER → 2022-08-19 | Outpatient (CLI) | payer MEDICARE ==
[2022-08-19 19:11] LABS: BASO # 0.1 10^3/uL (0.0-0.2); BASO % 1.4 % (0.0-1.0); EOS % 10.8 % (0.0-3.0); HEMATOCRIT 35.7 % (42.0-52.0); HEMOGLOBIN 11.8 g/dl (13.5-17.5); LYMPH % 34.4 % (24.0-44.0); MEAN CORPUSCULAR HEMOGLOBIN 31.6 pg (27.0-33.0); MEAN CORPUSCULAR HGB CONC 33.1 g/dl (32.0-36.5); MEAN CORPUSCULAR VOLUME 95.7 fl (80.0-96.0); MONO # 1.1 10^3/uL (0.0-0.8); MONO % 12.9 % (2.0-8.0); NEUTROPHILS # 3.5 10^3/uL (1.5-8.5); NEUTROPHILS % 40.2 % (36.0-66.0); PLATELET COUNT, AUTOMATED 202 10^3/uL (150-450); RED BLOOD COUNT 3.73 10^6/uL (4.30-6.10); WHITE BLOOD COUNT 8.8 10^3/uL (4.0-10.0)
[2022-08-19 19:29] LABS: ALBUMIN 3.6 G/DL (3.2-5.2)
[2022-08-19 19:32] LABS: BILIRUBIN,TOTAL 0.2 MG/DL (0.3-1.2)
[2022-08-19 19:33] LABS: TOTAL PROTEIN 6.9 G/DL (5.7-8.2)
[2022-08-19 19:34] LABS: VALPROIC ACID (DEPAKOTE) 57.4 UG/ML (50.0-100.0)
[2022-08-19 19:37] LABS: CREATININE FOR GFR 1.45 MG/DL (0.70-1.30)
== END ==
LOC: M PLALAB 14:36
PROVIDERS: ATTEND Psychiatry & Neurology Neurology
DX: R56.9 Unspecified convulsions (principal)

== ENCOUNTER 2022-10-20 10:56 | Outpatient (RCR) | payer MEDICARE | END 2022-10-21 | LOC: M OT 10:56 | PROVIDERS: ATTEND Physician Assistant | DX: Z47.89 Encounter for other orthopedic aftercare (principal); M65.322 Trigger finger, left index finger; M65.332 Trigger finger, left middle finger ==

== ENCOUNTER 2022-11-06 11:21 | Outpatient (RCR) | payer MEDICARE ==
[2022-11-17] MEDS ORDERED: NEOM28.32 EX (15:18)
== END 2022-11-18 ==
LOC: M OT 11:21
PROVIDERS: ATTEND Physician Assistant
DX: M65.322 Trigger finger, left index finger (principal)

== ENCOUNTER 2022-11-17 14:44 | Emergency (ER) | payer MEDICARE ==
[~2022-11-17] VITALS: Ht 180.3 cm; Wt 92.0 kg
[2022-11-17 14:45] VITALS: BP 159/80
[2022-11-17] MEDS ORDERED: NEOM28.32 EX (15:18)
== END 2022-11-17 15:46 | disposition home or self-care (01) ==
LOC: M ED 14:44
DX: S51.801A Unspecified open wound of right forearm, initial encounter (principal); I10 Essential (primary) hypertension; G40.909 Epilepsy, unspecified, not intractable, without status epilepticus; F03.90 Unspecified dementia, unspecified severity, without behavioral disturbance, psychotic disturbance, mood disturbance, and anxiety; F17.200 Nicotine dependence, unspecified, uncomplicated; Z79.82 Long term (current) use of aspirin; Z79.891 Long term (current) use of opiate analgesic; Z79.811 Long term (current) use of aromatase inhibitors; Z79.899 Other long term (current) drug therapy; Z88.5 Allergy status to narcotic agent; Z88.6 Allergy status to analgesic agent; Z88.8 Allergy status to other drugs, medicaments and biological substances

== ENCOUNTER → 2022-12-16 | Outpatient (CLI) | payer MEDICARE, MEDICAID ==
[~2022-12-16] MED LIST changes: +NEOM28.32 EX
== END ==
LOC: M RAD 15:59
PROVIDERS: ATTEND Physician Assistant
DX: Z47.89 Encounter for other orthopedic aftercare (principal); M75.22 Bicipital tendinitis, left shoulder; M77.12 Lateral epicondylitis, left elbow; M19.022 Primary osteoarthritis, left elbow

== ENCOUNTER 2023-01-13 13:30 | Outpatient (RCR) | payer MEDICARE, MEDICAID | END 2023-01-18 | LOC: M PT 13:30 | PROVIDERS: ATTEND Physician Assistant | DX: M25.522 Pain in left elbow (principal); M25.512 Pain in left shoulder ==

== ENCOUNTER 2023-02-11 13:30 | Outpatient (RCR) | payer MEDICARE, MEDICAID | END 2023-02-18 | LOC: M PT 13:30 | PROVIDERS: ATTEND Physician Assistant | DX: M25.522 Pain in left elbow (principal); M25.512 Pain in left shoulder ==

== ENCOUNTER 2023-03-13 14:00 | Inpatient (IN) | payer MEDICARE, MEDICAID ==
[~2023-03-13] VITALS: Ht 177.8 cm; Wt 90.5 kg
[2023-03-13] MEDS ORDERED: CHARCOAL ACTIVATED LIQUID 25GM/120ML BTL PO ONE (14:20)
[2023-03-13 14:39] LABS: BASO # 0.1 10^3/uL (0.0-0.2); BASO % 1.4 % (0.0-1.0); EOS # 0.8 10^3/uL (0.0-0.5); EOS % 8.2 % (0.0-3.0); HEMATOCRIT 36.9 % (42.0-52.0); HEMOGLOBIN 12.2 g/dl (13.5-17.5); LYMPH # 2.8 10^3/uL (1.5-5.0); LYMPH % 29.9 % (24.0-44.0); MEAN CORPUSCULAR HEMOGLOBIN 31.6 pg (27.0-33.0); MEAN CORPUSCULAR HGB CONC 33.1 g/dl (32.0-36.5); MEAN CORPUSCULAR VOLUME 95.6 fl (80.0-96.0); MONO # 1.2 10^3/uL (0.0-0.8); MONO % 12.9 % (2.0-8.0); NEUTROPHILS # 4.4 10^3/uL (1.5-8.5); NEUTROPHILS % 47.1 % (36.0-66.0); PLATELET COUNT, AUTOMATED 209 10^3/uL (150-450); RED BLOOD COUNT 3.86 10^6/uL (4.30-6.10); WHITE BLOOD COUNT 9.3 10^3/uL (4.0-10.0)
[2023-03-13 14:43] LABS: VENOUS HCO3 27.7 MMOL/L (23.0-27.0); VENOUS O2 SATURATION 93.5 % (60.0-80.0); VENOUS PARTIAL PRESSURE CO2 47.7 mmHg (38.0-50.0); VENOUS PARTIAL PRESSURE O2 69.7 mmHg (30.0-50.0); VENOUS PH 7.382 UNITS (7.330-7.430); VENOUS STANDARD HCO3 26.1 MMOL/L; VENOUS TOTAL CO2 29.2 MMOL/L (24.0-28.0)
[2023-03-13 14:59] LABS: ETHYL ALCOHOL (ETHANOL) 0.005 % (0.000-0.010)
[2023-03-13 15:00] LABS: ACETAMINOPHEN LEVEL 3.7 UG/ML (10.0-20.0); VALPROIC ACID (DEPAKOTE) 66.4 UG/ML (50.0-100.0)
[2023-03-13 15:01] LABS: ALBUMIN 3.5 G/DL (3.2-5.2); ALKALINE PHOSPHATASE 53 U/L (46-116); ALT/SGPT 22 U/L (7.0-40); AST/SGOT 25 U/L (<34); BILIRUBIN,DIRECT 0.1 MG/DL (<0.4); BILIRUBIN,TOTAL 0.3 MG/DL (0.3-1.2); BLOOD UREA NITROGEN 17 MG/DL (9-23); CALCIUM LEVEL 9.6 MG/DL (8.3-10.6); CARBON DIOXIDE LEVEL 29 MMOL/L (20-31); CHLORIDE LEVEL 103 MMOL/L (98-107); CPK CREATINE PHOSPHOKINASE 367 U/L (46-171); CREATININE FOR GFR 1.59 MG/DL (0.70-1.30); GLOMERULAR FILTRATION RATE 44.8 (>35); GLUCOSE, FASTING 101 MG/DL (74-106); POTASSIUM SERUM 4.3 MMOL/L (3.5-5.1); SALICYLATE LEVEL < 3.0 MG/DL (<30); SODIUM LEVEL 137 MMOL/L (136-145); TOTAL PROTEIN 6.8 G/DL (5.7-8.2)
[2023-03-13 15:03] LABS: THYROID STIMULATING HORMONE 1.998 uIU/ML (0.55-4.78)
[2023-03-13 15:10] LABS: AMPHETAMINES LEVEL URINE NEGATIVE (NEGATIVE); BENZODIAZEPINES URINE NEGATIVE (NEGATIVE); CANNABINOIDS URINE NEGATIVE (NEGATIVE); COCAINE METABOLITE URINE NEGATIVE (NEGATIVE); METHADONE URINE NEGATIVE (NEGATIVE); OPIATES URINE NEGATIVE (NEGATIVE); PHENCYCLIDINE URINE NEGATIVE (NEGATIVE)
[2023-03-13 15:15] LABS: RSV AMPLIFICATION NEGATIVE (NEGATIVE)
[2023-03-13 15:18] LABS: BARBITURATES URINE POSITIVE (NEGATIVE)
[2023-03-13 15:21] LABS: OSMOLALITY SERUM 289 MOSM/KG (280-301)
[2023-03-13] MEDS ORDERED: ACETAMINOPHEN TAB 650MG DOSE (2X325MG) PO ONE (20:40)
[2023-03-13] MEDS ORDERED: amLODIPine 5 MG TAB PO ONE (20:50)
[2023-03-13] MEDS ORDERED: IBUPROFEN 400MG TAB PO PRN (21:25)
[2023-03-13] MEDS ORDERED: OLANZapine ORAL DISINTEGRATING TAB 5MG PO PRN (21:25)
[2023-03-13] MEDS ORDERED: diphenhydrAMINE 25MG CAP PO PRN (21:25)
[2023-03-13] MEDS ORDERED: NICOTINE 21MG/24HR 1 EA TRANSDERMAL TD PRN (21:25)
[2023-03-13] MEDS ORDERED: traZODone 50 MG TAB PO PRN (21:25)
[2023-03-13] MEDS ORDERED: MAALOX 30 ML SUSP *UDC PO PRN (21:25)
[2023-03-13] MEDS ORDERED: MOM 30ML SUSPENSION UDC PO PRN (21:25)
[2023-03-13] MEDS ORDERED: GABA-283 PO (22:27)
[2023-03-13] MEDS ORDERED: DULO20CA27 PO (22:27)
[2023-03-13] MEDS ORDERED: DONE10TA90 PO (22:27)
[2023-03-13] MEDS ORDERED: DIVA500T9 PO (22:27)
[2023-03-13] MEDS ORDERED: METH-1164 PO (22:28)
[2023-03-13] MEDS ORDERED: B-650TAB2 PO (22:28)
[2023-03-13] MEDS ORDERED: HOME MED LIST COMPLETE! XX SCH (22:30)
[2023-03-14 01:27] VITALS: BP 158/94; TEMP 98.2; O2SAT 96
[2023-03-14] MEDS: PRIMIDONE 50MG TAB PO SCH ×3 (02:12→21:55)
[2023-03-14] MEDS: LEVOTHYROXINE 25MCG TABLET (0.025MG) PO SCH (06:04)
[2023-03-14] MEDS: ACETAMINOPHEN TAB 650MG DOSE (2X325MG) PO PRN (06:06)
[2023-03-14 06:44] VITALS: BP 150/78; TEMP 98.2; O2SAT 96
[2023-03-14] MEDS ORDERED: DULoxetine 30MG CAPSULE (CYMBALTA) PO SCH (09:00)
[2023-03-14] MEDS ORDERED: GABAPENTIN 300 MG CAP PO SCH (09:00)
[2023-03-14] MEDS ORDERED: DIVALPROEX 125 MG TAB PO SCH (09:00)
[2023-03-14] MEDS ORDERED: DIVALPROEX 500 MG TAB PO SCH (09:00)
[2023-03-14] MEDS: DONEPEZIL 5 MG TAB PO SCH (09:19)
[2023-03-14] MEDS: FAMOTIDINE 20 MG TAB PO SCH ×2 (09:19→21:55)
[2023-03-14] MEDS: CYANOCOBALAMIN 500 MCG TAB PO SCH (09:19)
[2023-03-14] MEDS: MEMANTINE 5MG TABLET (NAMENDA) PO SCH ×2 (09:20→21:54)
[2023-03-14] MEDS: FUROSEMIDE 20 MG TAB PO SCH (09:20)
[2023-03-14] MEDS: ASPIRIN 81MG ENTERIC TABLET PO SCH (09:20)
[2023-03-14] MEDS: ATORVASTATIN 20 MG TAB PO SCH (09:20)
[2023-03-14] MEDS: VITAMIN D 1,000 INTERNATIONAL UNITS TABLET PO SCH (09:20)
[2023-03-14] MEDS: METOPROLOL SUCC *XL* 25MG TAB (TopROL *XL*) PO SCH (09:31)
[2023-03-14] MEDS: amLODIPine 5 MG TAB PO SCH (10:13)
[2023-03-14] MEDS: PANTOPRAZOLE 40MG TAB (PROTONIX) PO SCH (10:14)
[2023-03-14] MEDS: GABAPENTIN 400MG CAP PO SCH ×3 (12:27→21:55)
[2023-03-14] MEDS: DIVALPROEX 500MG *ER* TAB PO SCH ×2 (12:27→21:55)
[2023-03-14] MEDS: DULoxetine 20MG CAP (CYMBALTA) PO SCH ×2 (12:28→21:55)
[2023-03-14 13:04] VITALS: BP 137/75; TEMP 98.2; O2SAT 96
[2023-03-14 16:52] VITALS: BP 156/76; TEMP 98.2; O2SAT 95
[2023-03-14] MEDS: MIRTAZAPINE 7.5MG PER 1/2 TABLET PO SCH (21:55)
[2023-03-15] MEDS: GABAPENTIN 400MG CAP PO SCH ×6 (00:08→21:58)
[2023-03-15] MEDS: LEVOTHYROXINE 25MCG TABLET (0.025MG) PO SCH (06:16)
[2023-03-15 06:42] VITALS: BP 162/70; TEMP 98.1; O2SAT 96
[2023-03-15] MEDS: FUROSEMIDE 20 MG TAB PO SCH (08:43)
[2023-03-15] MEDS: DIVALPROEX 500MG *ER* TAB PO SCH ×2 (08:43→21:58)
[2023-03-15] MEDS: VITAMIN D 1,000 INTERNATIONAL UNITS TABLET PO SCH (08:43)
[2023-03-15] MEDS: CYANOCOBALAMIN 500 MCG TAB PO SCH (08:43)
[2023-03-15] MEDS: FAMOTIDINE 20 MG TAB PO SCH ×2 (08:43→21:58)
[2023-03-15] MEDS: ATORVASTATIN 20 MG TAB PO SCH (08:43)
[2023-03-15] MEDS: ASPIRIN 81MG ENTERIC TABLET PO SCH (08:43)
[2023-03-15] MEDS: DONEPEZIL 5 MG TAB PO SCH (08:44)
[2023-03-15] MEDS: amLODIPine 5 MG TAB PO SCH (08:45)
[2023-03-15] MEDS: PRIMIDONE 50MG TAB PO SCH ×2 (08:45→21:58)
[2023-03-15] MEDS: MEMANTINE 5MG TABLET (NAMENDA) PO SCH ×2 (08:45→21:58)
[2023-03-15] MEDS: DULoxetine 20MG CAP (CYMBALTA) PO SCH ×2 (08:45→21:58)
[2023-03-15] MEDS: METOPROLOL SUCC *XL* 25MG TAB (TopROL *XL*) PO SCH (08:45)
[2023-03-15] MEDS: PANTOPRAZOLE 40MG TAB (PROTONIX) PO SCH (08:45)
[2023-03-15] MEDS: ACETAMINOPHEN TAB 650MG DOSE (2X325MG) PO PRN (11:17)
[2023-03-15 16:23] VITALS: BP 136/66; TEMP 98.6; O2SAT 95
[2023-03-15] MEDS: MIRTAZAPINE 7.5MG PER 1/2 TABLET PO SCH (21:58)
[2023-03-16] MEDS: GABAPENTIN 400MG CAP PO SCH ×6 (03:49→20:24)
[2023-03-16] MEDS: LEVOTHYROXINE 25MCG TABLET (0.025MG) PO SCH (05:38)
[2023-03-16 06:42] VITALS: BP_SYST 130; BP_SYST 140; BP_DIAS 66; BP_DIAS 92; TEMP 97.6; TEMP 97.7; O2SAT 100; O2SAT 96
[2023-03-16] MEDS: DIVALPROEX 500MG *ER* TAB PO SCH ×2 (09:46→20:24)
[2023-03-16] MEDS: VITAMIN D 1,000 INTERNATIONAL UNITS TABLET PO SCH (09:46)
[2023-03-16] MEDS: PANTOPRAZOLE 40MG TAB (PROTONIX) PO SCH (09:47)
[2023-03-16] MEDS: ASPIRIN 81MG ENTERIC TABLET PO SCH (09:47)
[2023-03-16] MEDS: CYANOCOBALAMIN 500 MCG TAB PO SCH (09:47)
[2023-03-16] MEDS: FAMOTIDINE 20 MG TAB PO SCH ×2 (09:47→20:25)
[2023-03-16] MEDS: FUROSEMIDE 20 MG TAB PO SCH (09:48)
[2023-03-16] MEDS: ATORVASTATIN 20 MG TAB PO SCH (09:48)
[2023-03-16] MEDS: DONEPEZIL 5 MG TAB PO SCH (09:48)
[2023-03-16] MEDS: MEMANTINE 5MG TABLET (NAMENDA) PO SCH ×2 (09:49→20:24)
[2023-03-16] MEDS: DULoxetine 20MG CAP (CYMBALTA) PO SCH ×2 (09:49→20:24)
[2023-03-16] MEDS: PRIMIDONE 50MG TAB PO SCH ×2 (09:50→20:25)
[2023-03-16] MEDS: METOPROLOL SUCC *XL* 25MG TAB (TopROL *XL*) PO SCH (09:55)
[2023-03-16] MEDS: amLODIPine 5 MG TAB PO SCH (09:57)
[2023-03-16 18:00] VITALS: BP 142/74; TEMP 98
[2023-03-16] MEDS: MIRTAZAPINE 7.5MG PER 1/2 TABLET PO SCH (20:24)
[2023-03-17] MEDS: GABAPENTIN 400MG CAP PO SCH ×4 (04:00→13:03)
[2023-03-17] MEDS: ACETAMINOPHEN TAB 650MG DOSE (2X325MG) PO PRN (06:09)
[2023-03-17] MEDS: LEVOTHYROXINE 25MCG TABLET (0.025MG) PO SCH (06:09)
[2023-03-17 06:27] VITALS: BP 159/80; TEMP 99.7; O2SAT 93
[2023-03-17] MEDS: CYANOCOBALAMIN 500 MCG TAB PO SCH (09:15)
[2023-03-17] MEDS: VITAMIN D 1,000 INTERNATIONAL UNITS TABLET PO SCH (09:15)
[2023-03-17] MEDS: DULoxetine 20MG CAP (CYMBALTA) PO SCH (09:16)
[2023-03-17] MEDS: ASPIRIN 81MG ENTERIC TABLET PO SCH (09:16)
[2023-03-17] MEDS: amLODIPine 5 MG TAB PO SCH (09:17)
[2023-03-17] MEDS: DONEPEZIL 5 MG TAB PO SCH (09:17)
[2023-03-17] MEDS: FUROSEMIDE 20 MG TAB PO SCH (09:17)
[2023-03-17] MEDS: PANTOPRAZOLE 40MG TAB (PROTONIX) PO SCH (09:18)
[2023-03-17] MEDS: PRIMIDONE 50MG TAB PO SCH (09:18)
[2023-03-17] MEDS: FAMOTIDINE 20 MG TAB PO SCH (09:19)
[2023-03-17] MEDS: ATORVASTATIN 20 MG TAB PO SCH (09:19)
[2023-03-17] MEDS: DIVALPROEX 500MG *ER* TAB PO SCH (09:19)
[2023-03-17 09:20] VITALS: BP 150/90
[2023-03-17] MEDS: METOPROLOL SUCC *XL* 25MG TAB (TopROL *XL*) PO SCH (09:20)
[2023-03-17] MEDS: MEMANTINE 5MG TABLET (NAMENDA) PO SCH (09:21)
[2023-03-17] MEDS ORDERED: MIRT-10 PO (09:25)
[2023-03-17] MEDS ORDERED: DULO20CA27 PO (09:25)
[2023-03-17] MEDS ORDERED: AMLO1TAB24 PO (09:25)
== END 2023-03-17 15:29 | disposition home or self-care (01) | DRG 881 ==
LOC: EDBD 14:00 → M ED 14:00 → M ED INP 21:24 → M PSY 03-14 00:18
PROVIDERS: ADMIT Psychiatry & Neurology Psychiatry; ATTEND Psychiatry & Neurology Psychiatry
DX: F32.9 Major depressive disorder, single episode, unspecified (principal); F43.20 Adjustment disorder, unspecified; G30.9 Alzheimer's disease, unspecified; F02.80 Dementia in other diseases classified elsewhere, unspecified severity, without behavioral disturbance, psychotic disturbance, mood disturbance, and anxiety; Z88.8 Allergy status to other drugs, medicaments and biological substances; Z79.899 Other long term (current) drug therapy; Z79.82 Long term (current) use of aspirin; G40.909 Epilepsy, unspecified, not intractable, without status epilepticus; K21.9 Gastro-esophageal reflux disease without esophagitis; N40.0 Benign prostatic hyperplasia without lower urinary tract symptoms; J44.9 Chronic obstructive pulmonary disease, unspecified; N18.9 Chronic kidney disease, unspecified; F17.210 Nicotine dependence, cigarettes, uncomplicated; D64.9 Anemia, unspecified; E03.9 Hypothyroidism, unspecified; E78.5 Hyperlipidemia, unspecified; D72.10 Eosinophilia, unspecified

== ENCOUNTER 2023-05-27 08:49 | Day surgery (SDC) | payer MEDICARE, MEDICAID ==
[~2023-05-27] VITALS: Ht 177.8 cm; Wt 92.6 kg
[~2023-05-27 08:49] MED LIST changes: +B-650TAB2 PO; +DIVA500T9 PO; +DONE10TA90 PO; +DULO20CA27 PO; +GABA-284 PO; +METH-1164 PO; +MIRT-10 PO; +PHENYLEPHRINE 10% OPHTH SOL 5ML OD PRN; +TROPICAMIDE 1% OPHTH SOLN 15ML OD SCH
[2023-05-27] MEDS: LIDOCAINE 3.5 % 1ML OPHTH TOPICAL GEL OU ONE (10:28)
[2023-05-27] MEDS: OFLOXACIN 0.3 % (OCUFLOX) OPTH SOL 5ML OD ONE (10:28)
[2023-05-27] MEDS: PHENYLEPHRINE 2.5% OPHTH SOL 2ML OD SCH (10:28)
[2023-05-27] MEDS: CYCLOPENTOLATE 1% OPHTH SOLN 2ML BTL OD SCH (10:28)
[2023-05-27] MEDS ORDERED: MIDAZOLAM INJ 2MG/2ML VIAL As Ordered ONE (10:41)
[2023-05-27] MEDS ORDERED: fentaNYL 100 MCG/2 ML INJECTION As Ordered ONE (10:41)
[2023-05-27] MEDS: LIDOCAINE 1% SDV 5ML VIAL As Ordered ONE (11:20)
[2023-05-27] MEDS: CEFUROXIME 1MG/0.1ML INTRACAMERAL INJ As Ordered ONE (11:20)
[2023-05-27] MEDS: BSS IRRIG/VANCO(10MG)/TOBRA(5MG)/EPINEPH(1:1000-0.5CC)500ML BAG-ORONLY IR ONE (11:20)
[2023-05-27 12:00] VITALS: BP 176/88; TEMP 97.1; O2SAT 96
== END 2023-05-27 12:00 | disposition home or self-care (01) ==
LOC: M SDC 08:49
PROVIDERS: ATTEND Ophthalmology
DX: H25.11 Age-related nuclear cataract, right eye (principal); I10 Essential (primary) hypertension; E78.5 Hyperlipidemia, unspecified; E03.9 Hypothyroidism, unspecified; K21.9 Gastro-esophageal reflux disease without esophagitis; D64.9 Anemia, unspecified; R06.02 Shortness of breath; F41.9 Anxiety disorder, unspecified; F32.A Depression, unspecified; G30.9 Alzheimer's disease, unspecified; R56.9 Unspecified convulsions; J44.9 Chronic obstructive pulmonary disease, unspecified; N40.0 Benign prostatic hyperplasia without lower urinary tract symptoms; Z87.442 Personal history of urinary calculi; Z88.8 Allergy status to other drugs, medicaments and biological substances; Z79.899 Other long term (current) drug therapy; Z79.82 Long term (current) use of aspirin
CPT/HCPCS: 66984; J0697; J2250; J3010; V2632

== ENCOUNTER → 2023-06-02 | Outpatient (REF) | payer MEDICARE, MEDICAID ==
[~2023-06-02] MED LIST changes: -PHENYLEPHRINE 10% OPHTH SOL 5ML OD PRN; -TROPICAMIDE 1% OPHTH SOLN 15ML OD SCH
== END ==
LOC: M LAB REF 17:40
PROVIDERS: ATTEND Surgery
DX: L72.0 Epidermal cyst (principal)

== ENCOUNTER 2023-07-08 10:49 | Day surgery (SDC) | payer MEDICARE, MEDICAID ==
[~2023-07-08] VITALS: Ht 177.8 cm; Wt 94.2 kg
[~2023-07-08 10:49] MED LIST changes: +AIMO70IN2 SQ; +BSS IRRIG/VANCO(10MG)/TOBRA(5MG)/EPINEPH(1:1000-0.5CC)500ML BAG-ORONLY IR ONE; -CEFD300C41 PO; +CEFD300C42 PO; +CEFUROXIME 1MG/0.1ML INTRACAMERAL INJ As Ordered ONE; +CYCLOPENTOLATE 1% OPHTH SOLN 2ML BTL OS SCH; +LIDOCAINE 1% SDV 5ML VIAL As Ordered ONE; +LIDOCAINE 3.5 % 1ML OPHTH TOPICAL GEL OU ONE; +OFLOXACIN 0.3 % (OCUFLOX) OPTH SOL 5ML OS ONE; +PHENYLEPHRINE 10% OPHTH SOL 5ML OS PRN; +PHENYLEPHRINE 2.5% OPHTH SOL 2ML OS SCH; +TROPICAMIDE 1% OPHTH SOLN 15ML OS SCH; +fentaNYL 100 MCG/2 ML INJECTION As Ordered ONE
[2023-07-08 12:38] VITALS: BP 138/60; TEMP 97.4; O2SAT 96
== END 2023-07-08 13:16 | disposition home or self-care (01) ==
LOC: M SDC 10:49
PROVIDERS: ATTEND Ophthalmology
DX: H26.9 Unspecified cataract (principal); E03.9 Hypothyroidism, unspecified; I10 Essential (primary) hypertension; J44.9 Chronic obstructive pulmonary disease, unspecified; E78.00 Pure hypercholesterolemia, unspecified; F17.210 Nicotine dependence, cigarettes, uncomplicated; Z79.899 Other long term (current) drug therapy; Z79.82 Long term (current) use of aspirin; Z79.890 Hormone replacement therapy; Z88.8 Allergy status to other drugs, medicaments and biological substances
CPT/HCPCS: 66984; J0697; J3010; V2632

== ENCOUNTER → 2024-01-07 | Outpatient (CLI) | payer MEDICARE, MEDICAID ==
[~2024-01-07] MED LIST changes: -BSS IRRIG/VANCO(10MG)/TOBRA(5MG)/EPINEPH(1:1000-0.5CC)500ML BAG-ORONLY IR ONE; +CEFD1CAP9 PO; -CEFD300C42 PO; -CEFUROXIME 1MG/0.1ML INTRACAMERAL INJ As Ordered ONE; -CYCLOPENTOLATE 1% OPHTH SOLN 2ML BTL OS SCH; -LIDOCAINE 1% SDV 5ML VIAL As Ordered ONE; -LIDOCAINE 3.5 % 1ML OPHTH TOPICAL GEL OU ONE; -OFLOXACIN 0.3 % (OCUFLOX) OPTH SOL 5ML OS ONE; -PHENYLEPHRINE 10% OPHTH SOL 5ML OS PRN; -PHENYLEPHRINE 2.5% OPHTH SOL 2ML OS SCH; -TROPICAMIDE 1% OPHTH SOLN 15ML OS SCH; -fentaNYL 100 MCG/2 ML INJECTION As Ordered ONE
[2024-01-07 11:19] LABS: HEMATOCRIT 42.2 % (42.0-52.0); HEMOGLOBIN 14.1 g/dl (13.5-17.5); MEAN CORPUSCULAR HEMOGLOBIN 32.3 pg (27.0-33.0); MEAN CORPUSCULAR HGB CONC 33.4 g/dl (32.0-36.5); MEAN CORPUSCULAR VOLUME 96.6 fl (80.0-96.0); PLATELET COUNT, AUTOMATED 204 10^3/uL (150-450); RED BLOOD COUNT 4.37 10^6/uL (4.30-6.10); WHITE BLOOD COUNT 10.8 10^3/uL (4.0-10.0)
[2024-01-07 11:39] LABS: PSA SCREENING 3.43 NG/ML (< 4.00)
[2024-01-07 11:43] LABS: ALBUMIN 3.3 G/DL (3.2-5.2); BILIRUBIN,TOTAL 0.4 MG/DL (0.3-1.2); CHOLESTEROL RISK RATIO 3.05 (<5); CREATININE FOR GFR 1.81 MG/DL (0.70-1.30); GLOMERULAR FILTRATION RATE 38.6 (>35); HDL CHOLESTEROL 41.6 MG/DL (>40); NON-HDL-C 85.4 MG/DL; POTASSIUM SERUM 4.7 MMOL/L (3.5-5.1); THYROID STIMULATING HORMONE 4.479 uIU/ML (0.55-4.78); TOTAL 25(OH) VITAMIN D 40.2 NG/ML (20.0-100.0); TOTAL PROTEIN 7.3 G/DL (5.7-8.2)
[2024-01-07 11:45] LABS: FREE T4 0.95 NG/DL (0.89-1.76)
== END ==
LOC: M LAB 10:16
PROVIDERS: ATTEND Physician Assistant Medical
DX: E03.9 Hypothyroidism, unspecified (principal); E78.2 Mixed hyperlipidemia; I12.9 Hypertensive chronic kidney disease with stage 1 through stage 4 chronic kidney disease, or unspecified chronic kidney disease; N18.9 Chronic kidney disease, unspecified; E55.9 Vitamin D deficiency, unspecified; Z12.5 Encounter for screening for malignant neoplasm of prostate
CPT/HCPCS: 36415; 80053; 80061; 82306; 84439; 84443; 85027; G0103

== ENCOUNTER 2024-03-30 13:26 | Emergency (ER) | payer MEDICARE, MEDICAID ==
[~2024-03-30] VITALS: Ht 180.3 cm; Wt 205.0 kg
[~2024-03-30 13:26] MED LIST changes: +DOXY-323 PO; -DOXY-443 PO
[2024-03-30 14:17] LABS: BASO # 0.1 10^3/uL (0.0-0.2); BASO % 1.2 % (0.0-1.0); EOS # 0.6 10^3/uL (0.0-0.5); EOS % 7.4 % (0.0-3.0); HEMATOCRIT 34.9 % (42.0-52.0); HEMOGLOBIN 11.9 g/dl (13.5-17.5); LYMPH # 2.7 10^3/uL (1.5-5.0); LYMPH % 35.1 % (24.0-44.0); MEAN CORPUSCULAR HEMOGLOBIN 33.1 pg (27.0-33.0); MEAN CORPUSCULAR HGB CONC 34.1 g/dl (32.0-36.5); MEAN CORPUSCULAR VOLUME 97.2 fl (80.0-96.0); MONO % 13.1 % (2.0-8.0); NEUTROPHILS # 3.3 10^3/uL (1.5-8.5); NEUTROPHILS % 42.8 % (36.0-66.0); PLATELET COUNT, AUTOMATED 143 10^3/uL (150-450); RED BLOOD COUNT 3.59 10^6/uL (4.30-6.10); WHITE BLOOD COUNT 7.7 10^3/uL (4.0-10.0)
[2024-03-30 14:34] LABS: INR 1.15; PARTIAL THROMBOPLASTIN TIME 23.6 SECONDS (24.8-34.2); PROTHROMBIN TIME 14.3 SECONDS (12.5-14.5)
[2024-03-30] MEDS ORDERED: AIMO70IN2 SQ (14:44)
[2024-03-30] MEDS ORDERED: LISI10TA22 PO (14:44)
[2024-03-30] MEDS ORDERED: TAMS1CAP17 PO (14:44)
[2024-03-30] MEDS ORDERED: LEXA5TAB13 PO (14:44)
[2024-03-30 14:47] LABS: ALBUMIN 3.2 G/DL (3.2-5.2); BILIRUBIN,TOTAL 0.3 MG/DL (0.3-1.2); CALCIUM LEVEL 8.8 MG/DL (8.3-10.6); CREATININE FOR GFR 1.37 MG/DL (0.70-1.30); GLOMERULAR FILTRATION RATE 53.1 (>35); POTASSIUM SERUM 4.3 MMOL/L (3.5-5.1); TOTAL PROTEIN 6.2 G/DL (5.7-8.2)
[2024-03-30] MEDS ORDERED: ANUS25SU PR (17:47)
[2024-03-30 18:02] LABS: HEMATOCRIT 35.7 % (42.0-52.0); HEMOGLOBIN 12.1 g/dl (13.5-17.5); MEAN CORPUSCULAR HEMOGLOBIN 32.9 pg (27.0-33.0); MEAN CORPUSCULAR HGB CONC 33.9 g/dl (32.0-36.5); PLATELET COUNT, AUTOMATED 124 10^3/uL (150-450); RED BLOOD COUNT 3.68 10^6/uL (4.30-6.10); WHITE BLOOD COUNT 7.5 10^3/uL (4.0-10.0)
[2024-03-30 19:54] VITALS: BP 146/76; TEMP 98.1; O2SAT 97
== END 2024-03-30 19:56 | disposition home or self-care (01) ==
LOC: EDBD 13:26 → M ED 13:26
DX: K92.2 Gastrointestinal hemorrhage, unspecified (principal); I12.9 Hypertensive chronic kidney disease with stage 1 through stage 4 chronic kidney disease, or unspecified chronic kidney disease; N18.9 Chronic kidney disease, unspecified; J44.9 Chronic obstructive pulmonary disease, unspecified; G30.9 Alzheimer's disease, unspecified; F02.80 Dementia in other diseases classified elsewhere, unspecified severity, without behavioral disturbance, psychotic disturbance, mood disturbance, and anxiety; G40.409 Other generalized epilepsy and epileptic syndromes, not intractable, without status epilepticus; N40.0 Benign prostatic hyperplasia without lower urinary tract symptoms; F17.200 Nicotine dependence, unspecified, uncomplicated; Z79.82 Long term (current) use of aspirin; Z79.899 Other long term (current) drug therapy; Z88.8 Allergy status to other drugs, medicaments and biological substances

== ENCOUNTER 2024-10-10 12:49 | Emergency (ER) | payer MEDICARE, MEDICAID ==
[~2024-10-10] VITALS: Ht 177.8 cm; Wt 95.5 kg
[~2024-10-10 12:49] MED LIST changes: +ANUS25SU PR; -DOXY-323 PO; +DOXY-441 PO; +GABA-1490 PO; -GABA600T4 PO; +LEXA5TAB13 PO; +LISI10TA22 PO; +TAMS1CAP17 PO
[2024-10-10 14:08] LABS: KETONE, URINE AUTO RFX NEGATIVE (NEGATIVE); NITRITE, URINE AUTO RFX NEGATIVE (NEGATIVE); RBC, URINE AUTO RFX 19 /HPF (0-3); SQUAM EPITHELIAL CELL UR AURFX 0 /HPF (0-6)
[2024-10-10 14:10] LABS: LEUKOCYTE ESTERASE UR AUTO RFX 3+ (NEGATIVE); WBC, URINE AUTO RFX TNTC /HPF (0-3)
[2024-10-10 15:00] LABS: BASO # 0.1 10^3/uL (0.0-0.2); BASO % 0.7 % (0.0-1.0); EOS # 0.6 10^3/uL (0.0-0.5); EOS % 4.6 % (0.0-3.0); HEMATOCRIT 33.9 % (42.0-52.0); HEMOGLOBIN 11.5 g/dl (13.5-17.5); MEAN CORPUSCULAR HEMOGLOBIN 32.8 pg (27.0-33.0); MEAN CORPUSCULAR HGB CONC 33.9 g/dl (32.0-36.5); MEAN CORPUSCULAR VOLUME 96.6 fl (80.0-96.0); MONO # 1.1 10^3/uL (0.0-0.8); MONO % 7.6 % (2.0-8.0); NEUTROPHILS # 8.9 10^3/uL (1.5-8.5); NEUTROPHILS % 64.2 % (36.0-66.0); PLATELET COUNT, AUTOMATED 221 10^3/uL (150-450); RED BLOOD COUNT 3.51 10^6/uL (4.30-6.10); WHITE BLOOD COUNT 13.8 10^3/uL (4.0-10.0)
[2024-10-10 15:31] LABS: CALCIUM LEVEL 8.2 MG/DL (8.3-10.6); CREATININE FOR GFR 1.54 MG/DL (0.70-1.30); GLOMERULAR FILTRATION RATE 46.4 (>35); POTASSIUM SERUM 4.4 MMOL/L (3.5-5.1)
[2024-10-10] MEDS: KETOROLAC 30 MG/ML 1ML VIAL IM ONE (17:24)
[2024-10-10] MEDS ORDERED: SULF1TAB23 PO (17:40)
[2024-10-10 17:43] VITALS: BP 158/71; TEMP 98.7; O2SAT 96
== END 2024-10-10 17:51 | disposition home or self-care (01) ==
LOC: M ED 12:49
DX: N30.00 Acute cystitis without hematuria (principal); I10 Essential (primary) hypertension; E78.5 Hyperlipidemia, unspecified; E03.9 Hypothyroidism, unspecified; M54.50 Low back pain, unspecified; J44.9 Chronic obstructive pulmonary disease, unspecified; Z90.49 Acquired absence of other specified parts of digestive tract; Z88.8 Allergy status to other drugs, medicaments and biological substances; Z79.82 Long term (current) use of aspirin; Z79.02 Long term (current) use of antithrombotics/antiplatelets; Z79.811 Long term (current) use of aromatase inhibitors; Z79.899 Other long term (current) drug therapy; Z87.442 Personal history of urinary calculi
CPT/HCPCS: 74176; 80048; 81001; 85025; 87088; 87186; 96372; 99283; J1885

== ENCOUNTER 2025-01-23 11:25 | Emergency (ER) | payer MEDICARE, MEDICAID ==
[~2025-01-23] VITALS: Ht 180.3 cm; Wt 97.7 kg
[~2025-01-23 11:25] MED LIST changes: +SULF1TAB23 PO
[2025-01-23 12:21] LABS: BASO # 0.1 10^3/uL (0.0-0.2); BASO % 1.1 % (0.0-1.0); EOS # 0.6 10^3/uL (0.0-0.5); HEMATOCRIT 35.3 % (42.0-52.0); HEMOGLOBIN 11.9 g/dl (13.5-17.5); LYMPH # 3.2 10^3/uL (1.5-5.0); LYMPH % 30.5 % (24.0-44.0); MEAN CORPUSCULAR HEMOGLOBIN 32.4 pg (27.0-33.0); MEAN CORPUSCULAR HGB CONC 33.7 g/dl (32.0-36.5); MEAN CORPUSCULAR VOLUME 96.2 fl (80.0-96.0); MONO # 1.3 10^3/uL (0.0-0.8); MONO % 12.4 % (2.0-8.0); NEUTROPHILS # 5.2 10^3/uL (1.5-8.5); NEUTROPHILS % 49.7 % (36.0-66.0); PLATELET COUNT, AUTOMATED 170 10^3/uL (150-450); RED BLOOD COUNT 3.67 10^6/uL (4.30-6.10); WHITE BLOOD COUNT 10.5 10^3/uL (4.0-10.0)
[2025-01-23 12:49] LABS: CK-MB VALUE MASS 1.5 NG/ML (<3.6)
[2025-01-23 12:51] LABS: MB/CK RELATIVE INDEX 1.33 (< OR =4)
[2025-01-23 12:52] LABS: CALCIUM LEVEL 8.6 MG/DL (8.3-10.6); CREATININE FOR GFR 1.49 MG/DL (0.70-1.30); GLOMERULAR FILTRATION RATE 46.9 (>35); POTASSIUM SERUM 4.3 MMOL/L (3.5-5.1)
[2025-01-23 14:07] LABS: CK-MB VALUE MASS 1.2 NG/ML (<3.6)
[2025-01-23 14:08] LABS: MB/CK RELATIVE INDEX 1.11 (< OR =4)
[2025-01-23] MEDS ORDERED: ISOVUE-370 76% 100ML VIAL As Ordered ONE (14:37)
[2025-01-23 16:46] VITALS: BP 171/82; TEMP 96.6; O2SAT 97
== END 2025-01-23 17:06 | disposition home or self-care (01) ==
LOC: M ED 11:25 → EDBD 11:25 → M ED 17:06
DX: R07.9 Chest pain, unspecified (principal); R91.1 Solitary pulmonary nodule; I45.10 Unspecified right bundle-branch block; I10 Essential (primary) hypertension; K21.9 Gastro-esophageal reflux disease without esophagitis; F32.A Depression, unspecified; J44.9 Chronic obstructive pulmonary disease, unspecified; F17.200 Nicotine dependence, unspecified, uncomplicated; Z87.442 Personal history of urinary calculi; Z88.8 Allergy status to other drugs, medicaments and biological substances; Z79.82 Long term (current) use of aspirin; Z79.02 Long term (current) use of antithrombotics/antiplatelets; Z79.899 Other long term (current) drug therapy
CPT/HCPCS: 36415; 71045; 71275; 80048; 82550; 82553; 84484; 85025; 93005; 93041; 94760; 99285; Q9967

== ENCOUNTER → 2025-04-28 | Outpatient (REF) | payer MEDICARE, MEDICAID ==
[~2025-04-28] MED LIST changes: +DIVA-41 PO; -DIVA500T94 PO
== END ==
LOC: M LAB REF 17:02
PROVIDERS: ATTEND Nurse Practitioner Family
DX: N39.0 Urinary tract infection, site not specified (principal)

== ENCOUNTER 2025-08-13 08:56 | Observation (INO) | payer MEDICARE, MEDICAID ==
[~2025-08-13] VITALS: Ht 180.3 cm; Wt 89.9 kg
[~2025-08-13 08:56] MED LIST changes: -FISH10005 PO; +FISH1CAP38 PO; +SULF-7 PO; -SULF1TAB23 PO
[2025-08-13 09:42] LABS: BASO # 0.1 10^3/uL (0.0-0.2); BASO % 1.1 % (0.0-1.0); EOS # 0.7 10^3/uL (0.0-0.5); EOS % 8.5 % (0.0-3.0); LYMPH # 2.8 10^3/uL (1.5-5.0); LYMPH % 33.2 % (24.0-44.0); MONO # 1.5 10^3/uL (0.0-0.8); MONO % 17.4 % (2.0-8.0); NEUTROPHILS # 3.3 10^3/uL (1.5-8.5); NEUTROPHILS % 39.2 % (36.0-66.0); PLATELET COUNT, AUTOMATED 188 10^3/uL (150-450)
[2025-08-13] MEDS: NS 500 ML IV ONE (10:01)
[2025-08-13 10:09] LABS: VENOUS BASE EXCESS -1.2 (-2.0-2.0); VENOUS HCO3 23.9 MMOL/L (23.0-27.0); VENOUS O2 SATURATION 92.0 % (60.0-80.0); VENOUS PARTIAL PRESSURE CO2 41.5 mmHg (38.0-50.0); VENOUS PARTIAL PRESSURE O2 63.3 mmHg (30.0-50.0); VENOUS PH 7.378 UNITS (7.330-7.430); VENOUS STANDARD HCO3 23.3 MMOL/L; VENOUS TOTAL CO2 25.2 MMOL/L (24.0-28.0)
[2025-08-13 10:13] LABS: CK-MB VALUE MASS 1.0 NG/ML (<3.6); ETHYL ALCOHOL (ETHANOL) 0.003 % (0.000-0.010)
[2025-08-13] MEDS ORDERED: ISOVUE-370 76% 100 ML VIAL As Ordered ONE (10:13)
[2025-08-13 10:15] LABS: ALT/SGPT 25 U/L (7.0-40); AST/SGOT 28 U/L (<34); CALCIUM LEVEL 8.4 MG/DL (8.3-10.6); CARBON DIOXIDE LEVEL 24 MMOL/L (20-31); CHLORIDE LEVEL 108 MMOL/L (98-107); CPK CREATINE PHOSPHOKINASE 62 U/L (46-171); CREATININE FOR GFR 1.43 MG/DL (0.70-1.30); GLOMERULAR FILTRATION RATE 48.9 (>35); MB/CK RELATIVE INDEX 1.61 (< OR =4); POTASSIUM SERUM 4.2 MMOL/L (3.5-5.1); SALICYLATE LEVEL < 3.0 MG/DL (<30); SODIUM LEVEL 142 MMOL/L (136-145)
[2025-08-13] MEDS: LIDOCAINE 2% 5 ML JELLY UROJET TOP ONE (10:40)
[2025-08-13] MEDS: NS (Normal Saline) 0.9% 1,000 ML IV ONE (11:15)
[2025-08-13 11:17] LABS: KETONE, URINE AUTO RFX NEGATIVE (NEGATIVE); LEUKOCYTE ESTERASE UR AUTO RFX 1+ (NEGATIVE); MUCUS, URINE RFX SMALL (NEGATIVE); NITRITE, URINE AUTO RFX NEGATIVE (NEGATIVE); RBC, URINE AUTO RFX 1 /HPF (0-3); SQUAM EPITHELIAL CELL UR AURFX 0 /HPF (0-6); WBC, URINE AUTO RFX 17 /HPF (0-3)
[2025-08-13 11:28] LABS: CK-MB VALUE MASS < 1.0 NG/ML (<3.6)
[2025-08-13 11:29] LABS: CPK CREATINE PHOSPHOKINASE 53 U/L (46-171)
[2025-08-13 11:38] LABS: AMPHETAMINES LEVEL URINE NEGATIVE (NEGATIVE)
[2025-08-13 11:39] LABS: BENZODIAZEPINES URINE NEGATIVE (NEGATIVE); CANNABINOIDS URINE NEGATIVE (NEGATIVE); COCAINE METABOLITE URINE NEGATIVE (NEGATIVE); METHADONE URINE NEGATIVE (NEGATIVE); OPIATES URINE NEGATIVE (NEGATIVE); PHENCYCLIDINE URINE NEGATIVE (NEGATIVE)
[2025-08-13 11:43] LABS: BARBITURATES URINE POSITIVE (NEGATIVE)
[2025-08-13] MEDS ORDERED: BUSP10TA PO (13:13)
[2025-08-13] MEDS ORDERED: MEMA28CA12 PO (13:13)
[2025-08-13] MEDS ORDERED: LEVO75CA3 PO (13:13)
[2025-08-13] MEDS ORDERED: DULO1CAP4 PO (13:13)
[2025-08-13] MEDS ORDERED: NORV5TAB PO (13:13)
[2025-08-13] MEDS ORDERED: HOME MED LIST COMPLETE! XX SCH (13:15)
[2025-08-13] MEDS ORDERED: MAALOX 30 ML SUSP *UDC PO PRN (14:10)
[2025-08-13] MEDS ORDERED: MOM 30 ML SUSPENSION UDC PO PRN (14:10)
[2025-08-13 15:29] VITALS: BP 141/81; TEMP 98.1; O2SAT 97
[2025-08-13 19:34] VITALS: BP 165/79; TEMP 99; O2SAT 98
[2025-08-13] MEDS ORDERED: FAMOTIDINE 20 MG TAB PO SCH (21:00)
[2025-08-13] MEDS: HEPARIN SOD 5000 UNITS/ML 1 ML VIAL/SYRINGE SC SCH (21:31)
[2025-08-13] MEDS: GABAPENTIN 400 MG CAP PO SCH (21:31)
[2025-08-13] MEDS: DIVALPROEX 500 MG *ER* TAB PO SCH (21:32)
[2025-08-13] MEDS: PRIMIDONE 50MG TAB PO SCH (21:32)
[2025-08-14] MEDS ORDERED: RAMELTEON 8 MG TAB PO PRN (00:15)
[2025-08-14 04:58] VITALS: BP 161/74; TEMP 98.9; O2SAT 97
[2025-08-14] MEDS: LEVOTHYROXINE 75 MCG TABLET (0.075 MG) PO SCH (05:01)
[2025-08-14 06:23] LABS: CALCIUM LEVEL 8.2 MG/DL (8.3-10.6); CARBON DIOXIDE LEVEL 24.0 MMOL/L (20-31); CHLORIDE LEVEL 110.0 MMOL/L (98-107); CREATININE FOR GFR 1.25 MG/DL (0.70-1.30); GLOMERULAR FILTRATION RATE 57.5 (>35); MAGNESIUM LEVEL 1.8 MG/DL (1.8-2.4); POTASSIUM SERUM 4.3 MMOL/L (3.5-5.1); SODIUM LEVEL 145.0 MMOL/L (136-145)
[2025-08-14] MEDS ORDERED: MEMANTINE 5 MG TABLET PO SCH (09:00)
[2025-08-14] MEDS: FAMOTIDINE 20 MG TAB PO SCH (09:28)
[2025-08-14] MEDS: DONEPEZIL 5 MG TAB PO SCH (09:28)
[2025-08-14] MEDS: PANTOPRAZOLE 40MG TAB PO SCH (09:28)
[2025-08-14] MEDS: ESCITALOPRAM OXALATE 5 MG TABLET PO SCH (09:28)
[2025-08-14] MEDS: amLODIPine 5 MG TAB PO SCH (09:30)
[2025-08-14] MEDS: ATORVASTATIN 20 MG TAB PO SCH (09:30)
[2025-08-14] MEDS: CYANOCOBALAMIN 500 MCG TAB PO SCH (09:30)
[2025-08-14] MEDS: ASPIRIN 81 MG ENTERIC TABLET PO SCH (09:30)
[2025-08-14] MEDS: METOPROLOL SUCC. 25 MG *XL* TAB PO SCH (09:30)
[2025-08-14] MEDS: PRIMIDONE 50MG TAB PO SCH (09:30)
[2025-08-14] MEDS: NS (Normal Saline) 0.9% 1,000 ML IV SCH (09:31)
[2025-08-14] MEDS: MEMANTINE 5 MG TABLET PO SCH (09:31)
[2025-08-14 10:58] VITALS: BP 151/69
[2025-08-14 11:00] VITALS: BP 151/69; TEMP 97.8; O2SAT 98
[2025-08-14] MEDS: ACETAMINOPHEN 325 MG TAB PO PRN (14:27)
== END 2025-08-14 15:47 | disposition home health service (06) ==
LOC: M ED 08:56 → EDBD 08:56 → M ED INP 08:57 → M MS4PR 15:05
PROVIDERS: ADMIT Student in an Organized Health Care Education/Training Program; ATTEND Student in an Organized Health Care Education/Training Program
DX: A08.11 Acute gastroenteropathy due to Norwalk agent (principal); E03.9 Hypothyroidism, unspecified; I10 Essential (primary) hypertension; E78.5 Hyperlipidemia, unspecified; F03.90 Unspecified dementia, unspecified severity, without behavioral disturbance, psychotic disturbance, mood disturbance, and anxiety; K21.9 Gastro-esophageal reflux disease without esophagitis; Z79.82 Long term (current) use of aspirin; Z79.899 Other long term (current) drug therapy
CPT/HCPCS: 70450; 71045; 71275; 74177; 80047; 80048; 80053; 80143; 80307; 81001; 82077; 82140; 82248; 82550; 82553; 82803; 83605; 83735; 84443; 84484; 85025; 87040; 87076; 87088; 87154; 87186; 87486; 87507; 87581; 87633; 87798; 93005; 93041; 94760; 96361; 96372; 96374; 96376; 97161; 97530; 99285; G0378; Q9967